=== PATIENT | female | born 1955 | race African-American/Black ===

== ENCOUNTER → 2016-09-18 | Outpatient (CLI) | payer OTHER ==
[~2016-09-18] MED LIST: ATOR1TAB18 PO; CHLO25TA PO; COUM2.5T11 PO; GABA-283 PO; HYDR12.55 PO; HYDR1TAB97 PO; LISI-538 PO; METF500T PO; NAPR500T PO; NAPR500T2 PO; PERC5TAB6 PO; POTA10CA PO
[2016-09-18 11:08] LABS: BASO % 0.2 % (0.0-1.0); EOS # 0.1 K/mm3 (0.0-0.50); EOS % 1.4 % (0.0-3.0); LARGE UNSTAINED CELL # 0.1 K/mm3 (0.0-0.4); LARGE UNSTAINED CELL % 1.1 % (0.0-4.0); LYMPH # 2.1 K/mm3 (1.5-4.5); LYMPH % 22.2 % (24.0-44.0); MEAN CORPUSCULAR HEMOGLOBIN 29.8 pg (27.0-33.0); MEAN CORPUSCULAR HGB CONC 32.3 g/dl (32.0-36.5); MEAN CORPUSCULAR VOLUME 92.2 fl (80.0-96.0); MONO # 0.5 K/mm3 (0.0-0.8); MONO % 5.2 % (0.0-5.0); NEUTROPHILS # 6.5 K/mm3 (1.8-7.7); NEUTROPHILS % 69.8 % (36.0-66.0); PLATELET COUNT, AUTOMATED 209 k/mm3 (150-450); RED CELL DISTRIBUTION WIDTH 12.7 % (11.5-14.5); WHITE BLOOD COUNT 9.4 K/mm3 (4.0-10.0)
[2016-09-18 12:00] LABS: ALBUMIN 3.5 GM/DL (3.2-5.2); ALBUMIN/GLOBULIN RATIO 1.06 (1.00-1.93); ALKALINE PHOSPHATASE 92 U/L (45-117); ALT/SGPT 38 U/L (12-78); ANION GAP 12 MEQ/L (8-16); AST/SGOT 23 U/L (15-37); BILIRUBIN,TOTAL 0.9 MG/DL (0.2-1.0); BLOOD UREA NITROGEN 19 MG/DL (7-18); CALCIUM LEVEL 8.7 MG/DL (8.8-10.2); CARBON DIOXIDE LEVEL 27 MEQ/L (21-32); CHLORIDE LEVEL 101 MEQ/L (98-107); CREATININE FOR GFR 0.86 MG/DL (0.55-1.02); GLOMERULAR FILTRATION RATE > 60.0 (>45); GLUCOSE, FASTING 174 MG/DL (80-110); POTASSIUM SERUM 3.5 MEQ/L (3.5-5.1); SODIUM LEVEL 140 MEQ/L (136-145); TOTAL PROTEIN 6.8 GM/DL (6.4-8.2)
== END ==
LOC: M LAB 10:31
PROVIDERS: ATTEND Family Medicine
DX: Z01.812 Encounter for preprocedural laboratory examination (principal)

== ENCOUNTER → 2016-09-18 | Outpatient (CLI) | payer OTHER ==
[2016-09-18 11:09] LABS: MEAN CORPUSCULAR HEMOGLOBIN 29.3 pg (27.0-33.0); MEAN CORPUSCULAR HGB CONC 31.7 g/dl (32.0-36.5); MEAN CORPUSCULAR VOLUME 92.4 fl (80.0-96.0); RED CELL DISTRIBUTION WIDTH 13.6 % (11.5-14.5); WHITE BLOOD COUNT 11.3 K/mm3 (4.0-10.0)
[2016-09-18 11:15] LABS: INR 0.99
[2016-09-18 11:55] LABS: ALBUMIN 3.5 GM/DL (3.2-5.2); ALBUMIN/GLOBULIN RATIO 1.06 (1.00-1.93); ALKALINE PHOSPHATASE 95 U/L (45-117); ALT/SGPT 37 U/L (12-78); ANION GAP 14 MEQ/L (8-16); AST/SGOT 24 U/L (15-37); BILIRUBIN,TOTAL 0.8 MG/DL (0.2-1.0); BLOOD UREA NITROGEN 18 MG/DL (7-18); CALCIUM LEVEL 8.9 MG/DL (8.8-10.2); CARBON DIOXIDE LEVEL 26 MEQ/L (21-32); CHLORIDE LEVEL 102 MEQ/L (98-107); GLOMERULAR FILTRATION RATE > 60.0 (>45); GLUCOSE, FASTING 178 MG/DL (80-110); POTASSIUM SERUM 3.6 MEQ/L (3.5-5.1); SODIUM LEVEL 142 MEQ/L (136-145); TOTAL PROTEIN 6.8 GM/DL (6.4-8.2)
--- NOTE | 2016-09-18 23:22 | REP ---
Clinical: Hypertension and chest pain. Technique: PA and lateral. Comparison: 12/15/2015. Findings: Stable cardiomegaly is again suggested. Lung lees demonstrate chronic interstitial changes with a linear fibro atelectatic changes suggested in the left mid to lower lung zone. No focal consolidation, effusion, or pneumothorax. Skeletal structures demonstrate age-related degenerative changes. Impression: Chronic-appearing changes as described above. No obvious acute cardiopulmonary process. Signed by Manuel Morris MD 09/18/2016 11:14 P
--- NOTE | 2016-09-22 16:39 | HPE ---
DATE OF SCHEDULED ADMISSION: 09/24/2016 CHIEF COMPLAINT: Left knee pain. HISTORY OF PRESENT ILLNESS: This is a pleasant 61-year-old female with progressively worsening left knee pain and stiffness. She has failed to improve with conservative treatment. She has elected for surgery for her continued symptoms. She has pain with weightbearing activities and her activities of daily living. X-rays of her knee are notable for advanced osteoarthritis of the left knee joint. She has consented for a left total knee arthroplasty by Dr. Сергей Boyd. Medical optimization was performed by Dr. Menon. ALLERGIES: PENICILLIN CURRENT MEDICATIONS: - Naproxen 500 mg twice a day as needed - hydrocodone/acetaminophen 5/325 one every 6 hours as needed - HCTZ 12.5 mg once a day - metformin 500 mg one twice a day - lisinopril 20 mg one once a day PAST MEDICAL HISTORY: Includes high blood pressure and diabetes. PAST SURGICAL HISTORY: Includes bilateral cataracts and a right total knee arthroplasty. 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 FAMILY HISTORY: Noncontributory. REVIEW OF SYSTEMS: This patient denies chest pain, heart palpitations, cough, wheezing, difficulty breathing or shortness of breath. She denies abdominal pain, nausea, vomiting, diarrhea or constipation. She denies recent upper respiratory infection or urinary tract infection symptoms. She does complain of persistent pain in her left knee and pain with weightbearing activities in her left knee. PHYSICAL EXAMINATION: GENERAL: She is well-nourished, well-developed, in no acute distress, adult female. She ambulates with a moderate limp favoring her left lower extremity. She is not using assistive devices. VITAL SIGNS: She is 57-3/4 inches tall, weighs 202 pounds, with a temperature of 98.1, pulse 64, blood pressure 150/90, and respirations of 16. NECK: Supple without adenopathy or jugular venous distension. There were no carotid bruits appreciated upon auscultation. LUNGS: Clear to auscultation without rales or wheeze throughout. HEART: Regular rate and rhythm. ABDOMEN: Bowel sounds were present. EXTREMITIES: Examination of the knee revealed intact skin without erythema or ecchymosis. There is some edema through the joint lines. She has decreased range of motion secondary to pain and stiffness. The limb is neurovascularly intact. LABORATORY DATA: Chest x-ray showed no acute cardiopulmonary disease processes. EKG showed sinus bradycardia at 59 beats per minute. Urinalysis was within normal limits with a specific gravity of 1.014. Prothrombin time 13.2, INR 0.99. CBC showed a white count of 11.3 and mean corpuscular hemoglobin concentration of 31.7, otherwise within normal limits. Sedimentation rate was 3, glucose 178, BUN 18, creatinine 0.90, sodium 142, potassium 3.6. Urine culture showed no growth and nasal and sinus culture showed normal zana. IMPRESSION: Symptomatic osteoarthritis of the left knee. PLAN: Consented for a left total knee arthroplasty by Dr. Сергей Boyd.
== END ==
LOC: M ADMPAT 09:17
PROVIDERS: ATTEND Orthopaedic Surgery
DX: Z01.818 Encounter for other preprocedural examination (principal); E11.9 Type 2 diabetes mellitus without complications; I10 Essential (primary) hypertension

== ENCOUNTER 2016-09-24 05:47 | Inpatient (IN) | payer OTHER ==
[2016-09-18 10:32] VITALS: BP 160/90
[2016-09-24] VITALS (7 sets, daily range): BP systolic 144–178; BP diastolic 67–81
[~2016-09-24] VITALS: Ht 149.9 cm; Wt 92.1 kg
[~2016-09-24 05:47] MED LIST changes: +HYDR-3713 PO; -HYDR1TAB97 PO
[2016-09-24] MEDS ORDERED: LR 1,000 ML IV SCH ×2 (06:00→10:30)
[2016-09-24] MEDS ORDERED: COUM1TAB17 PO (06:46)
[2016-09-24] MEDS ORDERED: CLINDAMYCIN INJ 900MG/6ML VIAL As Ordered ONE (07:03)
[2016-09-24] MEDS ORDERED: TRANEXAMIC ACID 100 MG/ML 10ML VIAL As Ordered ONE (07:03)
[2016-09-24] MEDS ORDERED: MIDAZOLAM INJ 2 MG/2 ML VIAL (J2250) As Ordered ONE ×2 (07:03→09:54)
[2016-09-24] MEDS ORDERED: BUPIVACAINE HCL 0.25% 30 ML VIAL As Ordered ONE (07:03)
[2016-09-24] MEDS ORDERED: fentaNYL 100 MCG/2 ML INJECTION (J3010) As Ordered ONE ×2 (07:03→07:30)
[2016-09-24] MEDS ORDERED: BUPIVACAINE HCL 0.5% 10 ML VIAL As Ordered ONE (07:03)
[2016-09-24] MEDS ORDERED: EPINEPHrine INJ 1 MG/ML 1ML VIAL/AMP As Ordered ONE (07:08)
[2016-09-24] MEDS ORDERED: MIDAZOLAM INJ 2 MG/2 ML VIAL (J2250) IV PRN (07:45)
[2016-09-24] MEDS ORDERED: fentaNYL 100 MCG/2 ML INJECTION (J3010) IV PRN ×2 (07:45→10:30)
[2016-09-24] MEDS ORDERED: fentaNYL 100 MCG/2 ML INJECTION (J3010) XX ONE (08:27)
[2016-09-24] MEDS ORDERED: BUPIVACAINE HCL 0.5% 10 ML VIAL XX ONE (08:27)
[2016-09-24] MEDS ORDERED: TRANEXAMIC ACID 100 MG/ML 10ML VIAL XX ONE (08:27)
[2016-09-24] MEDS ORDERED: EPINEPHrine INJ 1 MG/ML 1ML VIAL/AMP XX ONE (08:27)
[2016-09-24] MEDS ORDERED: CLINDAMYCIN INJ 900MG/6ML VIAL IR ONE (08:27)
[2016-09-24] MEDS ORDERED: BUPIVACAINE HCL 0.25% 30 ML VIAL XX ONE (08:27)
--- NOTE | 2016-09-24 09:42 | RO ---
DATE OF PROCEDURE: 09/24/2016 PREOPERATIVE DIAGNOSIS: Varus osteoarthritis left knee. POSTOPERATIVE DIAGNOSIS: Varus osteoarthritis left knee. OPERATION PERFORMED: Left total knee replacement. SURGEON: Сергей Boyd MD ACETALDEHYDE CONVERTER OPERATOR: VIVIANA Evans ANESTHESIA: HISTORY: A 61-year-old female who recently had a right total knee done. She has done pretty well with that and she presents to have the left one done. FINDING AT SURGERY: Severe osteoarthritis with significant synovitis, a 2.5 femur, a 2 tibia with a 12.5 spacer, 32 mm button. Tourniquet time 60 minutes. There were no intraoperative complications. Mani Damian assisted by retracting vital structures and making saw cuts under my supervision to expedite the procedure. PROCEDURE: After attempt at spinal anesthetic, the patient was placed under general anesthesia. She had a Pettit catheter placed. She had a femoral nerve block in place. IV antibiotics were administered, Kefzol 2 grams and the left leg prepped and draped. Then, tourniquet was inflated to 300 mmHg and an anterior incision made. There was a huge amount of adipose tissue to go through so the patella could not be flipped without skeletonizing it. So we just pushed it off of to the side and opened the intermedullary canal to 5 degrees valgus. 10 mm cut made by Mr. Damian under my supervision. I made the rest of the sizing cuts and then the tibia was exposed. Only went 2 mm on the bad side as I wanted to try to protect our posterior cruciate. The patient had quite a bit of laxity at any rate and I wanted to minimize the resection to stay in good bone. 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 Osteophytes were removed and the menisci were removed. There were no real posterior osteophytes to remove. The sizing guide actually set a 12.5 appeared to balance the extension and flexion gaps. The posterior cruciate was palpated. There still integrity there. The femoral component and tibial component were applied. Rotation was checked. The patella was resurfaced. No lateral release was required. The tibial preparation was completed and then all trial components were removed. Mr. Damian went to the back table to mix methacrylate under vacuum while I thoroughly irrigated the bone. It was then dried. He provided exposure while the components were cemented in place. Knee placed in full extension while the patella was clamped. During this time, the knee was irrigated. Bleeding points were discovered and coagulated. The PainBuster catheter was threaded in place and the tranexamic acid (TXA) placed in the wound for postoperative hemostasis. Then, the median parapatellar arthrotomy closed with heavy PDS suture. The subcutaneous closed with #2-0 PDS in layers due to the depth of the adipose. The tourniquet deflated at 60 minutes and the PainBuster was primed with 10 mL of local anesthetic and attached to the PainBuster ball. The patient then transported to recovery room, breathing spontaneously, having tolerated procedure well.
[2016-09-24] MEDS ORDERED: fentaNYL 250 MCG/5 ML INJECTION (J3010) As Ordered ONE (09:49)
[2016-09-24] MEDS ORDERED: PROPOFOL 200 MG/20 ML VIAL As Ordered ONE (09:49)
[2016-09-24] MEDS ORDERED: ONDANSETRON 4MG/2ML VIAL (J2405) As Ordered ONE (09:49)
[2016-09-24] MEDS ORDERED: ePHEDrine SULFATE 25 MG/5 ML(5MG/ML) SYRINGE As Ordered ONE (09:49)
[2016-09-24] MEDS ORDERED: dexameTHASONE 4 MG/ML 1ML VIAL (J1100) As Ordered ONE (09:49)
[2016-09-24] MEDS ORDERED: LABETALOL HCL 100 MG/20 ML VIAL As Ordered ONE (09:49)
[2016-09-24] MEDS ORDERED: LIDOCAINE 2% INJ 100 MG/5 ML SDV (FOR ANES.) As Ordered ONE (09:50)
[2016-09-24] MEDS ORDERED: ROCURONIUM BROMIDE 50 MG/5 ML VIAL As Ordered ONE (09:50)
[2016-09-24] MEDS ORDERED: GLYCOPYRROLATE INJ 0.2 MG/ML 2 ML VIAL As Ordered ONE (09:50)
[2016-09-24] MEDS ORDERED: MORPHINE PCA 1MG/ML 100ML CADD As Ordered ONE (09:54)
[2016-09-24] MEDS ORDERED: FLEET ENEMA PR PRN (10:30)
[2016-09-24] MEDS ORDERED: ACETAMINOPHEN TAB 650MG DOSE (2X325MG) PO PRN (10:30)
[2016-09-24] MEDS ORDERED: EPIDURAL/PCA KEYS XX PRN (10:30)
[2016-09-24] MEDS ORDERED: diphenhydrAMINE INJ 50MG/ML VIAL (J1200) IV PRN (10:30)
[2016-09-24] MEDS ORDERED: MORPHINE PCA 1MG/ML 100ML CADD IV PRN (10:30)
[2016-09-24] MEDS ORDERED: NALBUPHINE HCL 10 MG/ML AMP (J2300) IV PRN (10:30)
[2016-09-24] MEDS ORDERED: PATIENT IS CURRENTLY ON AN ON-Q PAIN BUSTER PAIN RELIEF SYSTEM XX SCH (10:30)
[2016-09-24] MEDS ORDERED: ONDANSETRON 4MG/2ML VIAL (J2405) IV PRN ×2 (10:30)
[2016-09-24] MEDS ORDERED: NALOXONE INJ 0.4 MG/1 ML VIAL (J2310) IV PRN (10:30)
[2016-09-24] MEDS ORDERED: LIDOCAINE 1% MDV 20ML VIAL ONE (11:06)
[2016-09-24] MEDS ORDERED: ROPIvacaine 0.5% 30 ML INJECTION (J2795) ONE (11:06)
[2016-09-24] MEDS ORDERED: dexameTHASONE 10 MG/1 ML VIAL PRES.FREE (J1100) ONE (11:06)
[2016-09-24] MEDS ORDERED: WARFARIN SOD 5 MG TAB PO SCH (17:00)
[2016-09-24] MEDS: NS 1,000 ML IV SCH ×2 (17:48→22:01)
--- NOTE | 2016-09-24 18:14 | CR.PDOC ---
[facility] Consultation Consultation DATE OF CONSULTATION: 09/24/2016 PRIMARY CARE PHYSICIAN: REFERRING PROVIDER: Dr. Ahsan Jose ATTENDING PHYSICIAN: Dr. Boyd REASON FOR CONSULTATION/CHIEF COMPLAINT: . Medical management HISTORY OF PRESENT ILLNESS: 61-year-old female with past medical history of hypertension, dyslipidemia, diabetes mellitus, and osteoarthritis who was admitted to the hospital for an elective left total knee replacement. At this time the patient denies any acute complaints and notes that she has been compliant with her medications at home. The hospitalist team has been consulted for co-medical management of the patient 's chronic medical comorbidities. ALLERGIES: Please see below. HOME MEDICATIONS: Please see below. PAST MEDICAL HISTORY: As noted above PAST SURGICAL HISTORY: Bilateral cataracts and a right total knee arthroplasty FAMILY HISTORY: Not pertinent SOCIAL HISTORY: Denies alcohol, tobacco, illicit drug use. REVIEW OF SYSTEMS: 10 point review of systems negative unless otherwise specified in HPI. PHYSICAL EXAMINATION: VITAL SIGNS: Please see below. GENERAL APPEARANCE: . Awake, alert, in no acute distress HEENT: . Normocephalic, atraumatic RESPIRATORY: . Clear to auscultation bilaterally CARDIOVASCULAR: . Normal rate, normal S1, S2 ABDOMEN: . Soft, nontender, nondistended EXTREMITIES: . Left knee noted to be wrapped in surgical dressing. Decreased range of motion secondary to recent surgery. Neurovascularly intact distally. LABORATORY DATA: Please see below. ASSESSMENT/PLAN: Status post total left knee replacement Patient tolerating current pain regimen well We'll defer DVT prophylaxis and pain management as per the orthopedic team Hypertension We will withhold the patient's chlorthalidone, lisinopril for this evening until we review BMP in a.m. Blood pressure currently stable Diabetes mellitus Insulin sliding scale Dyslipidemia Continue statin Vital Signs/I&O Vital Signs Date Time Temp Pulse Resp B/P Pulse Ox O2 Delivery O2 Flow Rate FiO2 09/24/16 17:20 98.4 84 18 163/75 98 Nasal Cannula 3.0 Laboratory Data Labs 24H Laboratory Tests 2 09/24/16 06:25: Bedside Glucose (Misc Panel) 154H CBC/BMP Laboratory Tests 09/24/16 06:17 FSBS Laboratory Tests Test 09/24/16 06:25 Range/Units Bedside Glucose (Misc Panel) 154 80-115 MG/DL Allergies Coded Allergies: Penicillins (Unverified Allergy, Intermediate, RASH,ITCHING, 09/18/16) Home Medications Scheduled Atorvastatin Calcium (Atorvastatin Calcium) 80 Mg Tab 80 MG PO DAILY (Reported ) Chlorthalidone (Chlorthalidone) 25 Mg Tab 25 MG PO DAILY (Reported) Gabapentin (Gabapentin) 400 Mg Cap 400 MG PO TID (Reported) Lisinopril (Lisinopril) 20 Mg Tab 20 MG PO DAILY (Reported) Metformin Hydrochloride (Metformin HCl) 500 Mg Tab 500 MG PO BID (Reported) Naproxen (Naproxen) 500 Mg Tab 500 MG PO BID (Reported) Warfarin Sod (Coumadin) 5 Mg Tab 5 MG PO 1T (Reported) AHSAN JOSE MD Sep 24, 2016 18:14
[2016-09-24] MEDS ORDERED: DEXTROSE 50% 50 ML SYRINGE IV PRN (18:15)
[2016-09-24] MEDS ORDERED: GLUCAGON FOR INJ 1 MG VIAL (J1610) SC PRN (18:15)
[2016-09-24] MEDS ORDERED: GLUCOSE 4 GM CHEW TABLET PO PRN (18:15)
[2016-09-24] MEDS: HumaLOG INSULIN (NovoLOG) PER UNIT SC SCH (22:00)
[2016-09-24] MEDS: GABAPENTIN 400 MG CAP PO SCH (22:00)
[2016-09-24] MEDS: ATORVASTATIN 20 MG TAB PO SCH (22:00)
[2016-09-25 02:00] VITALS: BP 167/78
[2016-09-25 06:00] VITALS: BP 172/88
[2016-09-25] MEDS ORDERED: ONDANSETRON 4 MG TAB (S0181) PO PRN (06:30)
[2016-09-25] MEDS ORDERED: PERCOCET 5MG/325MG TAB PO PRN (06:30)
[2016-09-25 06:59] LABS: MEAN CORPUSCULAR HEMOGLOBIN 30.2 pg (27.0-33.0); MEAN CORPUSCULAR HGB CONC 33.2 g/dl (32.0-36.5); MEAN CORPUSCULAR VOLUME 91.1 fl (80.0-96.0); RED CELL DISTRIBUTION WIDTH 12.7 % (11.5-14.5); WHITE BLOOD COUNT 11.2 K/mm3 (4.0-10.0)
[2016-09-25 07:10] LABS: INR 1.13
[2016-09-25 07:13] LABS: ANION GAP 7 MEQ/L (8-16); BLOOD UREA NITROGEN 11 MG/DL (7-18); CALCIUM LEVEL 8.1 MG/DL (8.8-10.2); CARBON DIOXIDE LEVEL 32 MEQ/L (21-32); CHLORIDE LEVEL 103 MEQ/L (98-107); CREATININE FOR GFR 0.72 MG/DL (0.55-1.02); GLOMERULAR FILTRATION RATE > 60.0 (>45); GLUCOSE, FASTING 157 MG/DL (80-110); POTASSIUM SERUM 3.4 MEQ/L (3.5-5.1); SODIUM LEVEL 142 MEQ/L (136-145)
[2016-09-25] MEDS ORDERED: POTASSIUM CHLORIDE 10% LIQ 20 MEQ/15 ML UDC PO ONE (08:00)
--- NOTE | 2016-09-25 08:48 | REP ---
Clinical: Status post arthroplasty. Technique: AP and cross-table lateral views. Findings: The patient is status post left knee replacement with normal positioning and appearance to the femoral and tibial components. Overlying postsurgical changes appreciated. Impression: Satisfactory left knee replacement radiographs. Signed by Manuel Morris MD 09/25/2016 08:38 A
[2016-09-25] MEDS: MOM 30ML SUSPENSION UDC PO SCH (08:53)
[2016-09-25] MEDS: SENOKOT S TAB PO SCH ×2 (08:54→21:39)
[2016-09-25] MEDS: CHLORTHALIDONE 25 MG TAB PO SCH (08:54)
[2016-09-25] MEDS: GABAPENTIN 400 MG CAP PO SCH ×3 (08:54→21:39)
[2016-09-25] MEDS: LISINOPRIL 20 MG TAB PO SCH (08:55)
[2016-09-25] MEDS: MIRALAX *UNIT DOSE* 17GM PACKET PO SCH (08:55)
[2016-09-25] MEDS: PERCOCET 5MG/325MG TAB PO PRN ×4 (08:56→21:39)
[2016-09-25] MEDS: HumaLOG INSULIN (NovoLOG) PER UNIT SC SCH ×4 (08:57→21:00)
[2016-09-25 14:00] VITALS: BP 136/71
--- NOTE | 2016-09-25 14:19 | IPNPDOC ---
Assessment/Plan Date Seen The patient was seen on 09/25/16. Plan / VTE VTE Prophylaxis Ordered?: Yes Plan Plan Text Status post total left knee replacement Patient tolerating current pain regimen well We'll defer DVT prophylaxis and pain management as per the orthopedic team Hypertension Cont chlorthalidone, lisinopril Blood pressure currently stable Diabetes mellitus Insulin sliding scale Dyslipidemia Continue statin Subjective Review of Systems CC/HPI The patient is a 61-year-old female admitted with a reason for visit of Left Knee Arthritis. General: Denies: Chills, Night Sweats Constitutional: Denies: Chills, Fever Eyes: Denies: Pain, Vision change ENT: Denies: Ear Pain, Head Aches Pulmonary: Denies: Cough, Dyspnea Cardiovascular: Denies: Chest Pain, Palpitations Gastrointestinal: Denies: Nausea, Vomiting Hematologic: Denies: Bleeding Excessively, Bruising Objective Physical Examination General Exam: Positive: Alert, Cooperative, No Acute Distress ENT Exam: Positive: Atraumatic, Mucous membr. moist/pink Chest Exam: Positive: Clear to auscultation, Normal air movement Heart Exam: Positive: Normal S1, Normal S2, Rate Normal Abdomen Exam: Positive: Soft, Negative: Tenderness Extremity Exam: Positive: Other (Left Knee noted to be wrapped in surgical dressing. Limited ROM 2/2 recent Knee Replacement) Vital Signs/I&O Vital Signs Date Time Temp Pulse Resp B/P Pulse Ox O2 Delivery O2 Flow Rate FiO2 09/25/16 13:04 18 98 09/25/16 09:00 Room Air 0.0 09/25/16 08:55 172/88 09/25/16 06:00 98.0 78 I&O- Last 24 Hours up to 6 AM 09/25/16 06:00 Intake Total 2730 ml Output Total 2300 ml Balance 430 ml Laboratory Data Labs 24H Laboratory Tests 2 09/24/16 21:31: Bedside Glucose (Misc Panel) 238H 09/25/16 06:18: Anion Gap 7L, Blood Urea Nitrogen 11, Creatinine 0.72, Sodium Level 142, Potassium Level 3.4L, Chloride Level 103, Carbon Dioxide Level 32, Calcium Level 8.1L, Glomerular Filtration Rate > 60.0, Prothromb Time International Ratio 1.13, Prothrombin Time 14.6H 09/25/16 11:58: Bedside Glucose (Misc Panel) 203H CBC/BMP Laboratory Tests 09/25/16 06:18 Calcium Level 8.1 L, Red Blood Count 3.73 L, Mean Corpuscular Volume 91.1, Mean Corpuscular Hemoglobin 30.2, Mean Corpuscular Hemoglobin Concent 33.2, Red Cell Distribution Width 12.7 FSBS Laboratory Tests Test 09/24/16 21:31 09/25/16 11:58 Range/Units Bedside Glucose (Misc Panel) 238 203 80-115 MG/DL MERCY JOSE MD Sep 25, 2016 14:19
[2016-09-25] MEDS ORDERED: WARFARIN SOD 5 MG TAB PO ONE (17:00)
[2016-09-25] MEDS: ATORVASTATIN 20 MG TAB PO SCH (21:39)
[2016-09-25 22:00] VITALS: BP 142/68
[2016-09-26] MEDS: PERCOCET 5MG/325MG TAB PO PRN ×3 (05:29→21:25)
[2016-09-26 06:00] VITALS: BP 130/63
[2016-09-26 06:45] LABS: MEAN CORPUSCULAR HEMOGLOBIN 29.3 pg (27.0-33.0); MEAN CORPUSCULAR HGB CONC 32.1 g/dl (32.0-36.5); MEAN CORPUSCULAR VOLUME 91.3 fl (80.0-96.0); RED CELL DISTRIBUTION WIDTH 13.7 % (11.5-14.5); WHITE BLOOD COUNT 9.9 K/mm3 (4.0-10.0)
[2016-09-26 06:47] LABS: INR 1.31
[2016-09-26] MEDS: LISINOPRIL 20 MG TAB PO SCH (08:13)
[2016-09-26] MEDS: CHLORTHALIDONE 25 MG TAB PO SCH (08:13)
[2016-09-26] MEDS: MOM 30ML SUSPENSION UDC PO SCH (08:13)
[2016-09-26] MEDS: MIRALAX *UNIT DOSE* 17GM PACKET PO SCH (08:13)
[2016-09-26] MEDS: HumaLOG INSULIN (NovoLOG) PER UNIT SC SCH ×4 (08:13→21:00)
[2016-09-26] MEDS: GABAPENTIN 400 MG CAP PO SCH ×3 (08:14→21:25)
[2016-09-26] MEDS: SENOKOT S TAB PO SCH ×2 (08:14→21:25)
[2016-09-26 14:00] VITALS: BP 135/75
--- NOTE | 2016-09-26 15:05 | IPNPDOC ---
Assessment/Plan Date Seen The patient was seen on 09/26/16. Plan / VTE VTE Prophylaxis Ordered?: Yes Plan Plan Text Status post total left knee replacement Patient tolerating current pain regimen well We'll defer DVT prophylaxis and pain management as per the orthopedic team Hypertension Cont chlorthalidone, lisinopril Blood pressure currently stable Diabetes mellitus Insulin sliding scale Dyslipidemia Continue statin Subjective Review of Systems CC/HPI The patient is a 61-year-old female admitted with a reason for visit of Left Knee Arthritis. General: Denies: Chills, Night Sweats Constitutional: Denies: Chills, Fever Eyes: Denies: Pain, Vision change ENT: Denies: Ear Pain, Head Aches Skin: Denies: Lesions, Rash Pulmonary: Denies: Cough, Dyspnea Cardiovascular: Denies: Chest Pain, Palpitations Gastrointestinal: Denies: Nausea, Vomiting Genitourinary: Denies: Dysuria, Frequency Hematologic: Denies: Bleeding Excessively, Bruising Objective Physical Examination General Exam: Positive: Alert, Cooperative, No Acute Distress ENT Exam: Positive: Atraumatic, Mucous membr. moist/pink Chest Exam: Positive: Clear to auscultation, Normal air movement Heart Exam: Positive: Normal S1, Normal S2, Rate Normal Abdomen Exam: Positive: Soft, Negative: Tenderness Extremity Exam: Positive: Other (Left Knee noted to be wrapped in surgical dressing. Limited ROM 2/2 recent Knee Replacement) Vital Signs/I&O Vital Signs Date Time Temp Pulse Resp B/P Pulse Ox O2 Delivery O2 Flow Rate FiO2 09/26/16 14:00 98.8 84 17 135/75 94 Room Air 09/25/16 18:27 0.0 I&O- Last 24 Hours up to 6 AM 09/26/16 06:00 Intake Total 1380 ml Output Total 1550 ml Balance -170 ml Laboratory Data Labs 24H Laboratory Tests 2 09/25/16 17:08: Bedside Glucose (Misc Panel) 199H 09/25/16 20:44: Bedside Glucose (Misc Panel) 160H 09/26/16 06:28: Prothromb Time International Ratio 1.31, Prothrombin Time 16.4H 09/26/16 06:29: Bedside Glucose (Misc Panel) 125H 09/26/16 07:37: Bedside Glucose (Misc Panel) 127H 09/26/16 12:04: Bedside Glucose (Misc Panel) 189H CBC/BMP Laboratory Tests 09/26/16 06:28 Red Blood Count 3.88 L, Mean Corpuscular Volume 91.3, Mean Corpuscular Hemoglobin 29.3, Mean Corpuscular Hemoglobin Concent 32.1, Red Cell Distribution Width 13.7 FSBS Laboratory Tests Test 09/25/16 17:08 09/25/16 20:44 09/26/16 06:29 09/26/16 07:37 Range/Units Bedside Glucose (Misc Panel) 199 160 125 127 80-115 MG/DL Test 09/26/16 12:04 Range/Units Bedside Glucose (Misc Panel) 189 80-115 MG/DL MERCY JOSE MD Sep 26, 2016 15:05
[2016-09-26] MEDS ORDERED: WARFARIN SOD 3 MG TAB PO ONE (17:00)
[2016-09-26] MEDS: ATORVASTATIN 20 MG TAB PO SCH (21:24)
[2016-09-26 22:00] VITALS: BP 131/74
[2016-09-27] MEDS: PERCOCET 5MG/325MG TAB PO PRN ×4 (04:04→20:13)
[2016-09-27 05:50] LABS: INR 1.46
[2016-09-27 05:51] LABS: MEAN CORPUSCULAR HEMOGLOBIN 30.2 pg (27.0-33.0); MEAN CORPUSCULAR HGB CONC 32.8 g/dl (32.0-36.5); MEAN CORPUSCULAR VOLUME 92.1 fl (80.0-96.0); RED CELL DISTRIBUTION WIDTH 12.7 % (11.5-14.5)
[2016-09-27 06:00] VITALS: BP 120/60
[2016-09-27] MEDS: LISINOPRIL 20 MG TAB PO SCH (08:07)
[2016-09-27] MEDS: MIRALAX *UNIT DOSE* 17GM PACKET PO SCH (08:07)
[2016-09-27] MEDS: CHLORTHALIDONE 25 MG TAB PO SCH (08:07)
[2016-09-27] MEDS: MOM 30ML SUSPENSION UDC PO SCH (08:07)
[2016-09-27] MEDS: SENOKOT S TAB PO SCH ×2 (08:07→20:13)
[2016-09-27] MEDS: GABAPENTIN 400 MG CAP PO SCH ×3 (08:07→20:14)
[2016-09-27] MEDS: HumaLOG INSULIN (NovoLOG) PER UNIT SC SCH ×4 (08:08→20:14)
--- NOTE | 2016-09-27 11:49 | IPNPDOC ---
Assessment/Plan Date Seen The patient was seen on 09/27/16. Plan / VTE VTE Prophylaxis Ordered?: Yes Plan Plan Text Status post total left knee replacement Patient tolerating current pain regimen well We'll defer DVT prophylaxis and pain management as per the orthopedic team Hypertension Cont chlorthalidone, lisinopril Blood pressure currently stable Diabetes mellitus Insulin sliding scale Dyslipidemia Continue statin Subjective Review of Systems CC/HPI The patient is a 61-year-old female admitted with a reason for visit of Left Knee Arthritis. General: Denies: Chills, Night Sweats Constitutional: Denies: Chills, Fever Eyes: Denies: Pain, Vision change ENT: Denies: Ear Pain, Head Aches Skin: Denies: Lesions, Rash Pulmonary: Denies: Cough, Dyspnea Cardiovascular: Denies: Chest Pain, Palpitations Gastrointestinal: Denies: Abdominal Pain, Nausea, Vomiting Hematologic: Denies: Bleeding Excessively, Bruising Objective Physical Examination General Exam: Positive: Alert, Cooperative, No Acute Distress ENT Exam: Positive: Atraumatic, Mucous membr. moist/pink Chest Exam: Positive: Clear to auscultation, Normal air movement Heart Exam: Positive: Normal S1, Normal S2, Rate Normal Abdomen Exam: Positive: Soft, Negative: Tenderness Extremity Exam: Positive: Other (Left Knee noted to be wrapped in surgical dressing. Limited ROM 2/2 recent Knee Replacement) Vital Signs/I&O Vital Signs Date Time Temp Pulse Resp B/P Pulse Ox O2 Delivery O2 Flow Rate FiO2 09/27/16 09:29 18 09/27/16 08:07 120/60 09/27/16 06:00 98.6 82 93 Room Air 09/25/16 18:27 0.0 I&O- Last 24 Hours up to 6 AM 09/27/16 05:59 Intake Total 1200 ml Output Total 2400 ml Balance -1200 ml Laboratory Data Labs 24H Laboratory Tests 2 09/26/16 12:04: Bedside Glucose (Misc Panel) 189H 09/26/16 16:53: Bedside Glucose (Misc Panel) 210H 09/26/16 21:14: Bedside Glucose (Misc Panel) 119H 09/27/16 05:13: Prothromb Time International Ratio 1.46, Prothrombin Time 17.8H 09/27/16 06:35: Bedside Glucose (Misc Panel) 137H CBC/BMP Laboratory Tests 09/27/16 05:13 Red Blood Count 3.74 L, Mean Corpuscular Volume 92.1, Mean Corpuscular Hemoglobin 30.2, Mean Corpuscular Hemoglobin Concent 32.8, Red Cell Distribution Width 12.7 FSBS Laboratory Tests Test 09/26/16 12:04 09/26/16 16:53 09/26/16 21:14 09/27/16 06:35 Range/Units Bedside Glucose (Misc Panel) 189 210 119 137 80-115 MG/DL MERCY JOSE MD Sep 27, 2016 11:49
[2016-09-27 14:00] VITALS: BP 121/62
[2016-09-27] MEDS ORDERED: WARFARIN SOD 7.5 MG TAB PO SCH (17:00)
[2016-09-27] MEDS: ATORVASTATIN 20 MG TAB PO SCH (20:11)
[2016-09-27 22:00] VITALS: BP 135/69
[2016-09-28] MEDS: PERCOCET 5MG/325MG TAB PO PRN ×3 (02:28→13:30)
[2016-09-28 05:57] LABS: INR 1.47
[2016-09-28 06:00] VITALS: BP 110/61
[2016-09-28] MEDS: HumaLOG INSULIN (NovoLOG) PER UNIT SC SCH ×2 (07:30→12:00)
[2016-09-28] MEDS ORDERED: COUM2.5T11 PO (08:26)
[2016-09-28] MEDS ORDERED: PERC5TAB6 PO (08:26)
[2016-09-28] MEDS: MIRALAX *UNIT DOSE* 17GM PACKET PO SCH (09:00)
[2016-09-28] MEDS: MOM 30ML SUSPENSION UDC PO SCH (09:00)
[2016-09-28] MEDS: CHLORTHALIDONE 25 MG TAB PO SCH (09:19)
[2016-09-28] MEDS: SENOKOT S TAB PO SCH (09:19)
[2016-09-28 09:20] VITALS: BP 110/61
[2016-09-28] MEDS: GABAPENTIN 400 MG CAP PO SCH (09:20)
[2016-09-28] MEDS: LISINOPRIL 20 MG TAB PO SCH (09:20)
[2016-09-28] MEDS ORDERED: COLA100C PO (10:42)
--- NOTE | 2016-09-28 11:43 | IPNPDOC ---
Assessment/Plan Date Seen The patient was seen on 09/28/16. Plan / VTE VTE Prophylaxis Ordered?: Yes Plan Plan Text Status post total left knee replacement Patient tolerating current pain regimen well We'll defer DVT prophylaxis and pain management as per the orthopedic team Hypertension Cont chlorthalidone, lisinopril Blood pressure currently stable Diabetes mellitus Insulin sliding scale Dyslipidemia Continue statin Subjective Review of Systems CC/HPI The patient is a 61-year-old female admitted with a reason for visit of Left Knee Arthritis. General: Denies: Chills, Night Sweats Constitutional: Denies: Chills, Fever Eyes: Denies: Pain, Vision change ENT: Denies: Ear Pain, Head Aches Skin: Denies: Lesions, Rash Pulmonary: Denies: Cough, Dyspnea Cardiovascular: Denies: Chest Pain, Palpitations Gastrointestinal: Denies: Abdominal Pain, Nausea, Vomiting Hematologic: Denies: Bleeding Excessively, Bruising Objective Physical Examination General Exam: Positive: Alert, Cooperative, No Acute Distress ENT Exam: Positive: Atraumatic, Mucous membr. moist/pink Chest Exam: Positive: Clear to auscultation, Normal air movement Heart Exam: Positive: Normal S1, Normal S2, Rate Normal Abdomen Exam: Positive: Soft, Negative: Tenderness Extremity Exam: Positive: Other (Left Knee noted to be wrapped in surgical dressing. Limited ROM 2/2 recent Knee Replacement) Vital Signs/I&O Vital Signs Date Time Temp Pulse Resp B/P Pulse Ox O2 Delivery O2 Flow Rate FiO2 09/28/16 09:50 20 09/28/16 09:20 110/61 09/28/16 09:20 Room Air 09/28/16 06:00 97.9 81 92 09/25/16 18:27 0.0 I&O- Last 24 Hours up to 6 AM 09/28/16 06:00 Intake Total 1080 ml Output Total 1550 ml Balance -470 ml Laboratory Data Labs 24H Laboratory Tests 2 09/27/16 17:05: Bedside Glucose (Misc Panel) 250H 09/27/16 20:10: Bedside Glucose (Misc Panel) 181H 09/28/16 05:12: Prothromb Time International Ratio 1.47, Prothrombin Time 17.9H 09/28/16 06:25: Bedside Glucose (Misc Panel) 132H FSBS Laboratory Tests Test 09/27/16 17:05 09/27/16 20:10 09/28/16 06:25 Range/Units Bedside Glucose (Misc Panel) 250 181 132 80-115 MG/DL MERCY JOSE MD Sep 28, 2016 11:43
[2016-09-28 14:00] VITALS: BP 149/67
--- NOTE | 2016-10-02 14:11 | DSES ---
DATE OF ADMISSION: 09/24/2016 DATE OF DISCHARGE: 09/28/2016 ATTENDING PHYSICIAN: Сергей Boyd MD ADMISSION DIAGNOSIS: Osteoarthritis left knee. OTHER DIAGNOSES: Hypertension, elevated lipids, non-insulin dependent diabetes. DISCHARGE DIAGNOSIS: Osteoarthritis left knee status post left total knee arthroplasty. HISTORY: This is a pleasant 61-year-old female with progressively worsening left knee pain and stiffness. She failed to improve with conservative management. She was admitted for elective knee replacement on the left side. OPERATION PERFORMED: Left total knee arthroplasty. HOSPITAL COURSE: The patient was admitted on day of surgery and underwent a left total knee arthroplasty which was uneventful. She did well in the postoperative period and hospital course was without complications. She was up with physical therapy per their protocol and her pain was controlled. On day of discharge she was doing well, weightbearing as tolerated on her left lower extremity. She will move her left knee to prevent stiffness. She will use adjusted dose Coumadin and thromboembolic deterrent (AIDEE) stockings for 30 days postoperative for deep venous thrombosis (DVT) prophylaxis. She will use oral pain medications for pain control. She will resume her preoperative medications and diet. She was given instructions to include but not limited to wound monitoring and activity limitations. Please refer to the medical record for further details. She will followup in our office in 10-14 days for surgical followup.
== END 2016-09-28 16:10 | disposition home health service (06) | DRG 302 ==
LOC: M OR 05:47 → M MS5PR 13:25
PROVIDERS: ADMIT Orthopaedic Surgery; ATTEND Orthopaedic Surgery
PROC: 0SRD0J9 Replacement of Left Knee Joint with Synthetic Substitute, Cemented, Open Approach (ICD-10-PCS; principal; 2016-09-24 07:30)
DX: M17.12 Unilateral primary osteoarthritis, left knee (principal); I10 Essential (primary) hypertension; E78.5 Hyperlipidemia, unspecified; E11.9 Type 2 diabetes mellitus without complications; Z88.0 Allergy status to penicillin; Z79.899 Other long term (current) drug therapy

== ENCOUNTER → 2016-09-30 | Outpatient (REF) | payer OTHER ==
[~2016-09-30] MED LIST changes: +COLA100C PO; +COUM1TAB17 PO
[2016-09-30 15:06] LABS: INR 2.19
== END ==
LOC: M SHH 14:25
PROVIDERS: ATTEND Nurse Practitioner Family
DX: Z51.81 Encounter for therapeutic drug level monitoring (principal); Z79.01 Long term (current) use of anticoagulants

== ENCOUNTER → 2016-10-02 | Outpatient (REF) | payer OTHER ==
[2016-10-02 15:06] LABS: INR 2.4
== END ==
LOC: M SHH 14:50
PROVIDERS: ATTEND Nurse Practitioner Family
DX: Z51.81 Encounter for therapeutic drug level monitoring (principal); Z79.01 Long term (current) use of anticoagulants

== ENCOUNTER → 2016-10-06 | Outpatient (REF) | payer OTHER | LOC: M LAB REF 13:37 → M SHH 13:37 | PROVIDERS: ATTEND Nurse Practitioner Family | DX: Z51.81 Encounter for therapeutic drug level monitoring (principal); Z79.01 Long term (current) use of anticoagulants ==

== ENCOUNTER → 2016-10-09 | Outpatient (REF) | payer OTHER ==
[2016-10-09 11:30] LABS: INR 1.19
== END ==
LOC: M SHH 11:13
PROVIDERS: ATTEND Nurse Practitioner Family
DX: Z51.81 Encounter for therapeutic drug level monitoring (principal); Z79.01 Long term (current) use of anticoagulants

== ENCOUNTER → 2016-10-14 | Outpatient (REF) | payer OTHER ==
[2016-10-14 15:35] LABS: INR 1.74
== END ==
LOC: M LAB REF 14:25
PROVIDERS: ATTEND Nurse Practitioner Family
DX: Z51.81 Encounter for therapeutic drug level monitoring (principal); Z79.01 Long term (current) use of anticoagulants

== ENCOUNTER → 2016-10-20 | Outpatient (REF) | payer OTHER ==
[2016-10-20 14:18] LABS: INR 1.34
== END ==
LOC: M SHH 13:33
PROVIDERS: ATTEND Nurse Practitioner Family
DX: Z51.81 Encounter for therapeutic drug level monitoring (principal); Z79.01 Long term (current) use of anticoagulants

== ENCOUNTER → 2016-10-23 | Outpatient (REF) | payer OTHER ==
[2016-10-23 12:43] LABS: INR 1.6
== END ==
LOC: M LAB REF 12:01
PROVIDERS: ATTEND Nurse Practitioner Family
DX: Z51.81 Encounter for therapeutic drug level monitoring (principal); Z79.01 Long term (current) use of anticoagulants

== ENCOUNTER → 2016-11-07 | Outpatient (CLI) | payer OTHER ==
[~2016-11-07] MED LIST changes: +E-Z PAQUE 60% w/v SUSP 355ML BOTTLE As Ordered ONE; +E-Z-GAS II EFFERVESCENT PACKET (SODIUM BICARB./CITRIC ACID/SIMETHICONE) As Ordered ONE; +E-Z-HD 98% w/w 340GM SUSP BTL As Ordered ONE
--- NOTE | 2016-11-07 11:06 | REP ---
Clinical: dysphagia. Technique: Single contrast and double contrast technique using barium sulfate substrates. Findings: Normal motility through the oropharynx and hypopharynx is appreciated without obvious mass/mass effect or contour abnormality. The esophagus demonstrates normal mucosal outline and distension without ulcerations, polyps, mass lesions, mucosal irregularities or extrinsic abnormalities. Scattered tertiary waves were noted and likely age-related. No areas of stenosis or stricture appreciated. A small sliding hiatal hernia is appreciated with mild reflux to the mid-esophageal level. Total fluoroscopic time: 1 minute 43 seconds . Impression: Normal esophageal motility with few scattered tertiary waves likely age related. Small sliding hiatal hernia and mild reflux. Signed by Manuel Morris MD 11/07/2016 10:58 A
== END ==
LOC: M RAD 09:59
PROVIDERS: ATTEND Family Medicine
DX: K44.9 Diaphragmatic hernia without obstruction or gangrene (principal)

== ENCOUNTER → 2017-02-13 | Outpatient (REF) | payer OTHER ==
[~2017-02-13] MED LIST changes: -COLA100C PO; +COLA100C3 PO; -E-Z PAQUE 60% w/v SUSP 355ML BOTTLE As Ordered ONE; -E-Z-GAS II EFFERVESCENT PACKET (SODIUM BICARB./CITRIC ACID/SIMETHICONE) As Ordered ONE; -E-Z-HD 98% w/w 340GM SUSP BTL As Ordered ONE
[2017-02-13 11:16] LABS: ANION GAP 7 MEQ/L (8-16); BLOOD UREA NITROGEN 16 MG/DL (7-18); CALCIUM LEVEL 8.8 MG/DL (8.8-10.2); CARBON DIOXIDE LEVEL 31 MEQ/L (21-32); CHLORIDE LEVEL 105 MEQ/L (98-107); GLOMERULAR FILTRATION RATE > 60.0 (>45); GLUCOSE, FASTING 148 MG/DL (80-110); POTASSIUM SERUM 3.8 MEQ/L (3.5-5.1); SODIUM LEVEL 143 MEQ/L (136-145)
== END ==
LOC: M LABDRAW1 08:46
PROVIDERS: ATTEND Family Medicine
DX: I50.32 Chronic diastolic (congestive) heart failure (principal)

== ENCOUNTER → 2017-02-27 | Outpatient (REF) | payer OTHER ==
[~2017-02-27] MED LIST changes: +GABA600T PO; +MULT1TAB10 PO
== END ==
LOC: M LAB REF 18:20
PROVIDERS: ATTEND Family Medicine
DX: E11.9 Type 2 diabetes mellitus without complications (principal)

== ENCOUNTER 2017-03-05 08:12 | Emergency (ER) | payer OTHER ==
[~2017-03-05] VITALS: Ht 157.5 cm; Wt 87.7 kg
[~2017-03-05 08:12] MED LIST changes: -ATOR1TAB18 PO; +ATOR80TA59 PO; -COLA100C3 PO; +COLA100C5 PO; -COUM2.5T11 PO; +COUM2.5T17 PO; -GABA600T PO; -METF500T PO; +METF500T13 PO; -MULT1TAB10 PO; -NAPR500T2 PO; +NAPR500T3 PO; +PERC5TAB12 PO; -PERC5TAB6 PO
[2017-03-05] MEDS ORDERED: POTA10CA PO (08:35)
[2017-03-05] MEDS ORDERED: GABA600T PO (08:35)
[2017-03-05] MEDS ORDERED: MULT1TAB10 PO (08:35)
[2017-03-05] MEDS ORDERED: NAPR500T3 PO (08:35)
[2017-03-05] MEDS ORDERED: IPRATROPIUM 0.5MG/ALBUTEROL 2.5MG INH SOL UD 3ML (DUONEB)(J7620) NEB ONE (08:45)
[2017-03-05] MEDS ORDERED: ALBUTEROL SULFATE 2.5 MG/0.5 ML INH NEB SOLN INH ONE (08:45)
[2017-03-05] MEDS ORDERED: methylPREDNISolone INJ 125 MG/2 ML VIAL (J2930) IV ONE (08:45)
[2017-03-05 09:16] LABS: INR 0.97
--- NOTE | 2017-03-05 09:21 | REP ---
Portable chest, 03/05/2017, 08:57 a.m., single AP view, patient sitting: Comparison is 2016. The lung lees are clear. The cardiac size is is enlarged, unchanged . The sarbjit, mediastinum, and bony thorax are unremarkable. Impression: Cardiomegaly. Otherwise, negative portable chest. Signed by William Farley MD 03/05/2017 09:13 A
[2017-03-05 09:24] LABS: ABG HCO3 26.6 MEQ/L (22.0-26.0); ABG PARTIAL PRESSURE CO2 36.9 mmHg (35.0-45.0); ABG PARTIAL PRESSURE O2 86.8 mmHg (75.0-100.0); ABG STANDARD HCO3 27.2 MEQ/L (22.0-26.0); ABG TOTAL CO2 27.7 MEQ/L (23.0-31.0); ABG pH (ARTERIAL) 7.475 UNITS (7.350-7.450)
[2017-03-05 09:25] LABS: BASO # 0.1 K/mm3 (0.0-0.2); BASO % 1.1 % (0.0-1.0); EOS # 0.1 K/mm3 (0.0-0.50); EOS % 2.2 % (0.0-3.0); LARGE UNSTAINED CELL # 0.1 K/mm3 (0.0-0.4); LARGE UNSTAINED CELL % 2.1 % (0.0-4.0); LYMPH % 38.1 % (24.0-44.0); MEAN CORPUSCULAR HGB CONC 33.7 g/dl (32.0-36.5); MEAN CORPUSCULAR VOLUME 91.9 fl (80.0-96.0); MONO # 0.4 K/mm3 (0.0-0.8); MONO % 6.8 % (0.0-5.0); NEUTROPHILS # 2.6 K/mm3 (1.8-7.7); NEUTROPHILS % 49.6 % (36.0-66.0); PLATELET COUNT, AUTOMATED 229 k/mm3 (150-450); RED CELL DISTRIBUTION WIDTH 12.3 % (11.5-14.5); WHITE BLOOD COUNT 5.2 K/mm3 (4.0-10.0)
[2017-03-05 09:28] LABS: ANION GAP 9 MEQ/L (8-16); BLOOD UREA NITROGEN 4 MG/DL (7-18); CALCIUM LEVEL 8.5 MG/DL (8.8-10.2); CARBON DIOXIDE LEVEL 29 MEQ/L (21-32); CHLORIDE LEVEL 93 MEQ/L (98-107); CREATININE FOR GFR 0.74 MG/DL (0.55-1.02); GLOMERULAR FILTRATION RATE > 60.0 (>45); GLUCOSE, FASTING 136 MG/DL (80-110); POTASSIUM SERUM 2.9 MEQ/L (3.5-5.1); SODIUM LEVEL 131 MEQ/L (136-145)
[2017-03-05 09:34] LABS: ALBUMIN 3.1 GM/DL (3.2-5.2); ALBUMIN/GLOBULIN RATIO 0.97 (1.00-1.93); BILIRUBIN,DIRECT 0.2 MG/DL (0.0-0.2); THYROXINE (T4) 11.4 UG/DL (4.5-12.0); TOTAL PROTEIN 6.3 GM/DL (6.4-8.2)
[2017-03-05] MEDS ORDERED: POTASSIUM CHLORIDE 10 MEQ SR TABLET PO ONE (10:15)
[2017-03-05] MEDS ORDERED: NS 500 ML IV ONE (10:45)
[2017-03-05] MEDS ORDERED: KCL 10MEQ IN 100ML SWI (KRUN) 10 MEQ in APPROPRIATE DILUENT 1 EA IV ONE ×2 (10:45)
[2017-03-05] MEDS ORDERED: ISOVUE-370 76% 100ML VIAL (Q9967) As Ordered ONE (11:04)
--- NOTE | 2017-03-05 11:58 | REP ---
CT chest with IV contrast, pulmonary artery CT angiography: There are no emboli in the pulmonary trunk or central pulmonary arteries. There are no emboli in the pulmonary artery lobe or segment branches. There are no infiltrates, effusions or masses. There is minor atelectasis at the inferior tip of the lingula posteriorly. There is a fibro linear scar in the anterior segment of the left lower lobe. The visualized upper abdominal contents are unremarkable. Impression: There are no pulmonary emboli. Otherwise, negative CT study of the chest. Signed by William Farley MD 03/05/2017 11:49 A
[2017-03-05 12:53] VITALS: BP 168/74
--- NOTE | 2017-03-06 05:55 | ECGEPIP ---
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
== END 2017-03-05 12:54 | disposition home or self-care (01) ==
LOC: M ED 09:44
DX: R06.00 Dyspnea, unspecified (principal); R20.9 Unspecified disturbances of skin sensation; R53.1 Weakness; E87.6 Hypokalemia; R94.31 Abnormal electrocardiogram [ECG] [EKG]; I51.7 Cardiomegaly; E11.9 Type 2 diabetes mellitus without complications; I10 Essential (primary) hypertension; Z79.84 Long term (current) use of oral hypoglycemic drugs; Z79.899 Other long term (current) drug therapy; Z88.0 Allergy status to penicillin

== ENCOUNTER → 2017-03-09 | Outpatient (CLI) | payer OTHER ==
[~2017-03-09] MED LIST changes: +ATOR1TAB18 PO; -ATOR80TA59 PO; +COLA100C3 PO; -COLA100C5 PO; +COUM2.5T11 PO; -COUM2.5T17 PO; +GABA600T PO; +METF500T PO; -METF500T13 PO; +MULT1TAB10 PO; +NAPR500T2 PO; -NAPR500T3 PO; -PERC5TAB12 PO; +PERC5TAB6 PO
[2017-03-09 20:14] LABS: ANION GAP 7 MEQ/L (8-16); BLOOD UREA NITROGEN 11 MG/DL (7-18); CALCIUM LEVEL 9.2 MG/DL (8.8-10.2); CARBON DIOXIDE LEVEL 29 MEQ/L (21-32); CHLORIDE LEVEL 99 MEQ/L (98-107); CREATININE FOR GFR 0.84 MG/DL (0.55-1.02); GLOMERULAR FILTRATION RATE > 60.0 (>45); GLUCOSE, FASTING 209 MG/DL (80-110); POTASSIUM SERUM 3.7 MEQ/L (3.5-5.1); SODIUM LEVEL 135 MEQ/L (136-145)
== END ==
LOC: M WUC 17:48
PROVIDERS: ATTEND Family Medicine
DX: E87.6 Hypokalemia (principal)

== ENCOUNTER → 2017-03-13 | Outpatient (CLI) | payer OTHER ==
[~2017-03-13] MED LIST changes: -ATOR1TAB18 PO; +ATOR80TA59 PO; -COLA100C3 PO; +COLA100C5 PO; -COUM2.5T11 PO; +COUM2.5T17 PO; -METF500T PO; +METF500T13 PO; -NAPR500T2 PO; +NAPR500T3 PO; +PERC5TAB12 PO; -PERC5TAB6 PO
[2017-03-13 19:32] LABS: TOTAL PROTEIN 6.3 GM/DL (6.4-8.2)
[2017-03-13 19:33] LABS: FOLATE 8.4 NG/ML (>5.4); VITAMIN B12 LEVEL 809 PG/ML (247-911)
[2017-03-19 10:31] LABS: ALBUMIN 3.77 GM/DL (3.29-5.55); ALBUMIN % 59.9 % (55.8-66.1); GAMMA GLOBULIN % 13.1 % (11.1-18.8)
== END ==
LOC: M WUC 17:15
PROVIDERS: ATTEND Psychiatry & Neurology Neurology
DX: G62.9 Polyneuropathy, unspecified (principal)

== ENCOUNTER → 2017-03-13 | Outpatient (REF) | payer OTHER ==
[2017-03-13 13:15] LABS: MAGNESIUM LEVEL 1.5 MG/DL (1.8-2.4)
== END ==
LOC: M LABDRAW1 12:07
PROVIDERS: ATTEND Family Medicine
DX: R53.1 Weakness (principal)

== ENCOUNTER → 2017-06-07 | Outpatient (CLI) | payer OTHER ==
[2017-06-07 18:11] LABS: ANION GAP 11 MEQ/L (8-16); BLOOD UREA NITROGEN 18 MG/DL (7-18); CALCIUM LEVEL 8.8 MG/DL (8.8-10.2); CARBON DIOXIDE LEVEL 27 MEQ/L (21-32); CHLORIDE LEVEL 113 MEQ/L (98-107); CREATININE FOR GFR 0.87 MG/DL (0.55-1.02); GLOMERULAR FILTRATION RATE > 60.0 (>45); GLUCOSE, FASTING 118 MG/DL (80-110); POTASSIUM SERUM 3.8 MEQ/L (3.5-5.1); SODIUM LEVEL 151 MEQ/L (136-145)
== END ==
LOC: M WUC 09:01
PROVIDERS: ATTEND Family Medicine
DX: E87.6 Hypokalemia (principal); E11.9 Type 2 diabetes mellitus without complications

== ENCOUNTER → 2017-07-10 | Outpatient (REF) | payer OTHER ==
[2017-07-10 11:58] LABS: ANION GAP 7 MEQ/L (8-16); BLOOD UREA NITROGEN 20 MG/DL (7-18); CALCIUM LEVEL 9.2 MG/DL (8.8-10.2); CARBON DIOXIDE LEVEL 30 MEQ/L (21-32); CHLORIDE LEVEL 103 MEQ/L (98-107); GLOMERULAR FILTRATION RATE > 60.0 (>45); GLUCOSE, FASTING 145 MG/DL (80-110); POTASSIUM SERUM 3.4 MEQ/L (3.5-5.1); SODIUM LEVEL 140 MEQ/L (136-145)
== END ==
LOC: M LABDRAW1 09:02
PROVIDERS: ATTEND Family Medicine
DX: E83.42 Hypomagnesemia (principal); I10 Essential (primary) hypertension

== ENCOUNTER → 2017-10-13 | Outpatient (CLI) | payer OTHER | LOC: M WHC 06:44 | DX: Z12.31 Encounter for screening mammogram for malignant neoplasm of breast (principal) | CPT/HCPCS: 77067 ==

== ENCOUNTER → 2017-10-26 | Day surgery (SDC) | payer OTHER ==
[~2017-10-26] MED LIST changes: -ATOR80TA59 PO; -CHLO25TA PO; -COLA100C5 PO; -COUM1TAB17 PO; -COUM2.5T17 PO; -GABA-283 PO; -GABA600T PO; -HYDR-3713 PO; -HYDR12.55 PO; +LIDOCAINE 2% INJ 100 MG/5 ML SDV (FOR ANES.) As Ordered; -LISI-538 PO; -METF500T13 PO; -MULT1TAB10 PO; -NAPR500T PO; -NAPR500T3 PO; +NS 1,000 ML IV; -PERC5TAB12 PO; -POTA10CA PO; +PROPOFOL 200 MG/20 ML VIAL As Ordered
== END | disposition home or self-care (01) ==
LOC: M OPP 10:06
DX: Z12.11 Encounter for screening for malignant neoplasm of colon (principal); D12.2 Benign neoplasm of ascending colon; D12.0 Benign neoplasm of cecum; D12.4 Benign neoplasm of descending colon; D12.5 Benign neoplasm of sigmoid colon; K57.30 Diverticulosis of large intestine without perforation or abscess without bleeding; K63.89 Other specified diseases of intestine; K64.8 Other hemorrhoids; I10 Essential (primary) hypertension; E78.5 Hyperlipidemia, unspecified; E11.9 Type 2 diabetes mellitus without complications; G47.8 Other sleep disorders; G47.30 Sleep apnea, unspecified; R06.83 Snoring; Z88.0 Allergy status to penicillin; Z79.899 Other long term (current) drug therapy; Z79.84 Long term (current) use of oral hypoglycemic drugs
CPT/HCPCS: 45385

== ENCOUNTER → 2017-11-28 | Outpatient (CLI) | payer OTHER ==
[2017-11-28 17:29] LABS: ANION GAP 10 MEQ/L (8-16); BLOOD UREA NITROGEN 16 MG/DL (7-18); CARBON DIOXIDE LEVEL 28 MEQ/L (21-32); CHLORIDE LEVEL 104 MEQ/L (98-107); CREATININE FOR GFR 0.79 MG/DL (0.55-1.30); GLOMERULAR FILTRATION RATE > 60.0 (>45); GLUCOSE, FASTING 136 MG/DL (70-100); MAGNESIUM LEVEL 1.8 MG/DL (1.8-2.4); POTASSIUM SERUM 3.5 MEQ/L (3.5-5.1); SODIUM LEVEL 142 MEQ/L (136-145)
[2017-11-28 17:46] LABS: CREATININE, URINE 82.9 MG/DL; MALB URINE SIEMENS 10.8 MG/L
[2017-11-28 18:22] LABS: ESTIMATED AVERAGE GLUCOSE 217 MG/DL (60-110); HEMOGLOBIN A1c 9.2 %
== END ==
LOC: M WUC 09:35
DX: E11.9 Type 2 diabetes mellitus without complications (principal); E83.42 Hypomagnesemia
CPT/HCPCS: 83735

== ENCOUNTER → 2018-02-26 | Outpatient (REF) | payer OTHER ==
[2018-02-26 11:42] LABS: ESTIMATED AVERAGE GLUCOSE 197 MG/DL (60-110); HEMOGLOBIN A1c 8.5 %
== END ==
LOC: M LABDRAW1 08:59
DX: E11.9 Type 2 diabetes mellitus without complications (principal)

== ENCOUNTER → 2018-06-28 | Outpatient (REF) | payer OTHER ==
[2018-06-28 13:14] LABS: ESTIMATED AVERAGE GLUCOSE 183 MG/DL (60-110)
== END ==
LOC: M LABDRAW1 11:58
DX: E11.8 Type 2 diabetes mellitus with unspecified complications (principal)

== ENCOUNTER → 2018-10-04 | Outpatient (REF) | payer OTHER ==
[~2018-10-04] MED LIST changes: +ATOR80TA59 PO; +CHLO25TA PO; +COLA100C5 PO; +COUM1TAB17 PO; +COUM2.5T17 PO; +GABA-843 PO; +GABA-845 PO; +GABA600T4 PO; +HYDR-3713 PO; +HYDR12.55 PO; +KLOR10TA76 PO; -LIDOCAINE 2% INJ 100 MG/5 ML SDV (FOR ANES.) As Ordered; +LISI-538 PO; +MAGN400C3 PO; +METF500T13 PO; +MULT1TAB10 PO; +NAPR-50 PO; +NAPR-885 PO; -NS 1,000 ML IV; +PERC5TAB12 PO; -PROPOFOL 200 MG/20 ML VIAL As Ordered; +VITA200025 PO
[2018-10-04 12:26] LABS: BLOOD UREA NITROGEN 27 MG/DL (7-18); CALCIUM LEVEL 9.3 MG/DL (8.8-10.2); CARBON DIOXIDE LEVEL 26 MEQ/L (21-32); CHLORIDE LEVEL 105 MEQ/L (98-107); CHOLESTEROL LEVEL 159 MG/DL (<200); CHOLESTEROL RISK RATIO 2.092 (<5); CREATININE FOR GFR 1.12 MG/DL (0.55-1.30); GLOMERULAR FILTRATION RATE > 60.0 (>45); GLUCOSE, FASTING 154 MG/DL (70-100); HDL CHOLESTEROL 76 MG/DL (>40); LDL CHOLESTEROL 66 MG/DL (<100); MAGNESIUM LEVEL 1.9 MG/DL (1.8-2.4); NON-HDL-C 83 MG/DL; POTASSIUM SERUM 4.3 MEQ/L (3.5-5.1); SODIUM LEVEL 141 MEQ/L (136-145); TRIGLYCERIDES LEVEL 85 MG/DL (<150)
[2018-10-04 12:31] LABS: TOTAL 25(OH) VITAMIN D 45.7 NG/ML (30.0-100.0)
[2018-10-04 12:43] LABS: HEMOGLOBIN A1c 8.8 %
[2018-10-04 12:48] LABS: MALB URINE SIEMENS 15.4 MG/L; MAU/CREAT RATIO 12.4 MCG/MG (0.0-30.0)
== END ==
LOC: M LABDRAW1 11:39
PROVIDERS: ATTEND Obstetrics & Gynecology
DX: E11.42 Type 2 diabetes mellitus with diabetic polyneuropathy (principal); E83.42 Hypomagnesemia; E78.5 Hyperlipidemia, unspecified; E55.9 Vitamin D deficiency, unspecified

== ENCOUNTER 2018-11-29 14:21 | Inpatient (IN) | payer OTHER ==
[~2018-11-29] VITALS: Ht 162.6 cm; Wt 81.5 kg
[2018-11-29] MEDS ORDERED: SPIR-10 PO (14:51)
[2018-11-29] MEDS ORDERED: NS 500 ML IV ONE (15:00)
[2018-11-29 15:20] LABS: BASO % 0.3 % (0.0-1.0); EOS % 0.3 % (0.0-3.0); HEMOGLOBIN 10.5 g/dl (12.0-15.5); LYMPH # 1.6 10^3/uL (1.5-4.5); LYMPH % 21.4 % (24.0-44.0); MEAN CORPUSCULAR HEMOGLOBIN 29.8 pg (27.0-33.0); MEAN CORPUSCULAR HGB CONC 32.8 g/dl (32.0-36.5); MEAN CORPUSCULAR VOLUME 90.9 fl (80.0-96.0); MONO # 0.7 10^3/uL (0.0-0.8); MONO % 8.5 % (0.0-5.0); NEUTROPHILS # 5.3 10^3/uL (1.8-7.7); PLATELET COUNT, AUTOMATED 212 10^3/uL (150-450); RED BLOOD COUNT 3.52 10^6/uL (4.00-5.40); WHITE BLOOD COUNT 7.6 10^3/uL (4.0-10.0)
--- NOTE | 2018-11-29 15:50 | ECGEPIP ---
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
[2018-11-29 15:55] LABS: INFLUENZA A AMPLIFICATION NEGATIVE (NEGATIVE); INFLUENZA B AMPLIFICATION NEGATIVE (NEGATIVE)
[2018-11-29] MEDS ORDERED: DILUENT IV ONE (16:15)
[2018-11-29] MEDS ORDERED: NS IV ONE (16:15)
[2018-11-29 16:52] LABS: BILIRUBIN,DIRECT 0.1 MG/DL (0.0-0.2); BILIRUBIN,TOTAL 0.6 MG/DL (0.2-1.0); CALCIUM LEVEL 9.2 MG/DL (8.8-10.2); CREATININE FOR GFR 1.5 MG/DL (0.55-1.30); GLOMERULAR FILTRATION RATE 45.1 (>45); POTASSIUM SERUM 3.4 MEQ/L (3.5-5.1); TOTAL PROTEIN 6.2 GM/DL (6.4-8.2)
--- NOTE | 2018-11-29 17:42 | REP ---
ABDOMEN, FLAT UPRIGHT PA CHEST, FOUR VIEWS: HISTORY: Vomiting. Air is present in the small and large intestine. Several air fluid levels are present. There are no dilated loops of intestine. There is no new peritoneum. The lungs are clear. The cardiac silhouette is enlarged. IMPRESSION: Nonspecific bowel gas pattern. Electronically Signed by Benitez Vasquez MD 11/30/2018 08:46 A
[2018-11-29] MEDS ORDERED: ACE65ERTAB PO (18:14)
[2018-11-29] MEDS ORDERED: LISI40TA PO (18:14)
[2018-11-29] MEDS ORDERED: TAB-TAB PO (18:14)
[2018-11-29] MEDS ORDERED: POTA1TAB14 PO (18:14)
[2018-11-29] MEDS ORDERED: METF-877 PO (18:18)
[2018-11-29] MEDS ORDERED: SYST1SOL OU (18:18)
[2018-11-29] MEDS ORDERED: VITA20008 PO (18:19)
[2018-11-29 18:20] LABS: ABG BASE EXCESS -11.2 (-2.0-2.0); ABG HCO3 13.1 MEQ/L (22.0-26.0); ABG O2 SATURATION 97.5 % (95.0-99.0); ABG PARTIAL PRESSURE CO2 25.8 mmHg (35.0-45.0); ABG PARTIAL PRESSURE O2 95.9 mmHg (75.0-100.0); ABG STANDARD HCO3 15.6 MEQ/L (22.0-26.0); ABG TOTAL CO2 13.9 MEQ/L (23.0-31.0); ABG pH (ARTERIAL) 7.325 UNITS (7.350-7.450)
[2018-11-29] MEDS ORDERED: METF500T13 PO (18:20)
[2018-11-29] MEDS ORDERED: ONDANSETRON 4MG/2ML VIAL (J2405) IV PRN (18:45)
[2018-11-29] MEDS ORDERED: GLUCAGON FOR INJ 1 MG VIAL (J1610) SC PRN (18:45)
[2018-11-29] MEDS ORDERED: GLUCOSE 4 GM CHEW TABLET PO PRN (18:45)
[2018-11-29] MEDS ORDERED: POLYVINYL ALCOHOL OPHTH SOLN 15 ML(LIQUITEARS) OU PRN (18:45)
[2018-11-29] MEDS ORDERED: ACETAMINOPHEN 650MG ER TAB (TYLENOL ARTHRITIS) PO PRN (18:45)
[2018-11-29] MEDS ORDERED: DEXTROSE 50% 50 ML SYRINGE IV PRN (18:45)
[2018-11-29] MEDS: NS 1,000 ML IV SCH (19:00)
--- NOTE | 2018-11-29 19:33 | REP ---
CT abdomen and pelvis without IV or oral contrast: History: Abdomen pain. No comparison CT study. Comparison is made with today's abdomen radiographs. CT findings: Preliminary digital team guide radiographs demonstrate a nonspecific air and fluid filled loops of small and large bowel. The lung bases show linear fibrosis versus discoid atelectasis in the left lower lobe. No pleural effusion is seen. No upper abdominal ascites is seen. The liver and the spleen are normal in size homogeneous in texture. No abnormalities noted in the gallbladder. Pancreas is unremarkable as well. No adrenal lesion is observed on either side. There is no evidence of intrarenal calculus or hydronephrosis. No retroperitoneal mass or adenopathy is observed. The appendix is not confidently identified but there is no evidence of pericecal or cecal inflammation to suggest appendicitis. The ileocecal valve is observed and is unremarkable. Small and large intestinal bowel loops show no evidence of obstructive lesion. No uterine or ovarian abnormality is observed. Urinary bladder is unremarkable. There is fairly heavy vascular calcification. There is a small umbilical hernia transmitting abdominal fat. No other abdominal wall defect is seen. Bone window settings show no acute bony abnormality. Impression: Small umbilical hernia transmitting abdominal fat. Otherwise no acute abdominal or pelvic abnormality. Electronically Signed by Woody Buchanan MD 11/29/2018 08:58 P
[2018-11-29] MEDS: KCL 10MEQ/100ML SWI (KRUN) 10 MEQ in APPROPRIATE DILUENT 1 EA IV SCH ×2 (20:30→20:45)
[2018-11-29] MEDS: GABAPENTIN 300 MG CAP PO SCH (20:30)
--- NOTE | 2018-11-29 20:50 | HPE ---
DATE OF ADMISSION: 11/29/2018 63-year-old female with a past medical history of hypertension, diabetes, who presents to the emergency room with diarrhea, nausea and vomiting for the past 3 days. She has a subjective feeling of fevers, aches and chills. She has been around her grandchildren; however, none of them have been ill. When she came to the emergency room, she was found to be in acute kidney injury and seemed very dehydrated and was giving 2.5 liters of normal saline and IV Zofran. She feels better at this time. Her potassium was repleted. She will be admitted for further management. PAST MEDICAL HISTORY: Again, past medical history of: 1. Hypertension. 2. Diabetes. ALLERGIES: She has drug allergies to PENICILLIN. FAMILY HISTORY: Noncontributory. SOCIAL HISTORY: The patient denies tobacco, alcohol, or illicit drugs. MEDICATIONS: She takes at home: - Tylenol 650 mg by mouth three times a day as needed - atorvastatin 80 mg by mouth daily - chlorthalidone 25 mg by mouth daily - cholecalciferol 2000 units by mouth daily - gabapentin 300 mg by mouth three times a day - Lisinopril 20 mg by mouth daily - magnesium 400 mg by mouth daily - metformin 500 mg by mouth twice a day - polyethylene glycol as needed - potassium chloride 20 mEq by mouth daily - spironolactone 12.5 mg by mouth daily - multivitamin one tablet by mouth daily REVIEW OF SYSTEMS: Negative for all ten major systems except what is mentioned in the history of present illness. PHYSICAL EXAMINATION: VITAL SIGNS: Blood pressure 102/58, heart rate 72 and regular, respiratory rate 16, temperature 98.6, oxygen saturation 98% on room air. Head is atraumatic, normocephalic. Neck is supple with no jugular venous distention (JVD). Lungs clear to auscultation. S1, S2 audible. No murmurs appreciated. Abdomen is soft. Positive bowel sounds. No pedal edema. Skin is intact. Neurologic examination, the patient is awake, alert and oriented times three. LABORATORIES: WBC 7.6, hemoglobin 10.5, hematocrit 32, platelets 212,000. Sodium 142, potassium 3.4, chloride 118, CO2 of 17, BUN 37, creatinine 1.5, lactic acid 2.3, lipase 197. IMPRESSION: 1. Acute viral gastroenteritis. 2. Acute kidney injury. 3. Hypokalemia. PLAN: The patient is to be admitted to the medical/surgical floor. We will continue IV hydration with normal saline at 125 mL an hour. Her acute kidney injury is likely prerenal in origin. We will monitor BUN and creatinine and trend as we give judicious fluids. Her potassium has been repleted. We will repeat a basic metabolic panel (BMP) to followup the potassium trend. I am going to hold off on all of her diuretics and her metformin at this time until her acute kidney injury resolves. Otherwise, we will continue all of her other preadmission medications and continue her care on the medical/surgical floor.
[2018-11-29] MEDS: ACETAMINOPHEN TAB 650MG DOSE (2X325MG) PO PRN (22:15)
[2018-11-29] MEDS ORDERED: cefTRIAXone SOD 1 GM in D5W MINI-BAG PLUS 50 ML IV ONE (22:30)
[2018-11-29 22:41] LABS: APPEARANCE, URINE CLEAR (CLEAR); BACTERIA, URINE AUTO NEGATIVE (NEGATIVE); BILIRUBIN, URINE AUTO NEGATIVE (NEGATIVE); BLOOD, URINE BLOOD NEGATIVE (NEGATIVE); COLOR, URINE YELLOW (YELLOW); GLUCOSE, URINE (UA) AUTO NEGATIVE (NEGATIVE); KETONE, URINE AUTO NEGATIVE (NEGATIVE); LEUKOCYTE ESTERASE, URINE AUTO NEGATIVE (NEGATIVE); MUCUS, URINE SMALL (NEGATIVE); NITRITE, URINE AUTO NEGATIVE (NEGATIVE); PROTEIN, URINE AUTO NEGATIVE (NEGATIVE); RBC, URINE AUTO 0 /HPF (0-3); SPECIFIC GRAVITY URINE AUTO 1.012 (1.002-1.035); SQUAMOUS EPITHELIAL CELL UR AU 0 /HPF (0-6); UROBILINOGEN, URINE AUTO 0.2 mg/dL (0.0-2.0); WBC, URINE AUTO 0 /HPF (0-3)
[2018-11-29 22:52] LABS: BASO % 0.5 % (0.0-1.0); EOS % 0.2 % (0.0-3.0); LYMPH # 1.6 10^3/uL (1.5-4.5); LYMPH % 19.3 % (24.0-44.0); MEAN CORPUSCULAR HGB CONC 33.3 g/dl (32.0-36.5); MONO # 0.7 10^3/uL (0.0-0.8); NEUTROPHILS # 5.9 10^3/uL (1.8-7.7); NEUTROPHILS % 71.1 % (36.0-66.0); PLATELET COUNT, AUTOMATED 134 10^3/uL (150-450); RED BLOOD COUNT 3.55 10^6/uL (4.00-5.40); WHITE BLOOD COUNT 8.2 10^3/uL (4.0-10.0)
[2018-11-30 01:44] VITALS: BP 108/54
[2018-11-30 06:00] VITALS: BP 147/71
[2018-11-30 06:26] LABS: BLOOD UREA NITROGEN 23 MG/DL (7-18); CALCIUM LEVEL 8.5 MG/DL (8.8-10.2); CARBON DIOXIDE LEVEL 12 MEQ/L (21-32); CHLORIDE LEVEL 123 MEQ/L (98-107); CREATININE FOR GFR 1.11 MG/DL (0.55-1.30); GLOMERULAR FILTRATION RATE > 60.0 (>45); GLUCOSE, FASTING 80 MG/DL (70-100); POTASSIUM SERUM 3.9 MEQ/L (3.5-5.1); SODIUM LEVEL 142 MEQ/L (136-145)
[2018-11-30] MEDS: NS 1,000 ML IV SCH ×3 (06:34→16:30)
[2018-11-30] MEDS: ACETAMINOPHEN TAB 650MG DOSE (2X325MG) PO PRN ×2 (06:34→21:04)
[2018-11-30] MEDS: HumaLOG INSULIN (NovoLOG) PER UNIT SC SCH ×3 (07:30→17:30)
[2018-11-30 08:51] LABS: BASO % 0.3 % (0.0-1.0); EOS % 0.3 % (0.0-3.0); HEMATOCRIT 32.9 % (36.0-47.0); HEMOGLOBIN 10.7 g/dl (12.0-15.5); LYMPH # 1.7 10^3/uL (1.5-4.5); LYMPH % 28.7 % (24.0-44.0); MEAN CORPUSCULAR HEMOGLOBIN 31.2 pg (27.0-33.0); MEAN CORPUSCULAR HGB CONC 32.5 g/dl (32.0-36.5); MEAN CORPUSCULAR VOLUME 95.9 fl (80.0-96.0); MONO # 0.4 10^3/uL (0.0-0.8); MONO % 7.4 % (0.0-5.0); NEUTROPHILS # 3.7 10^3/uL (1.8-7.7); NEUTROPHILS % 62.8 % (36.0-66.0); PLATELET COUNT, AUTOMATED 180 10^3/uL (150-450); RED BLOOD COUNT 3.43 10^6/uL (4.00-5.40)
[2018-11-30] MEDS: GABAPENTIN 300 MG CAP PO SCH ×4 (09:04→21:05)
[2018-11-30] MEDS: POTASSIUM CHLORIDE 10 MEQ SR TABLET PO SCH (09:04)
[2018-11-30] MEDS: ATORVASTATIN 20 MG TAB PO SCH (09:04)
[2018-11-30] MEDS: VITAMIN D 1,000 INTERNATIONAL UNITS TABLET PO SCH (09:04)
[2018-11-30] MEDS ORDERED: POLYVINYL ALCOHOL OPHTH SOLN 15 ML(LIQUITEARS) OU PRN (09:30)
[2018-11-30] MEDS: MEROPENEM INJ 1 GM in APPROPRIATE DILUENT 1 EA IV SCH ×2 (11:11→18:17)
[2018-11-30] MEDS: MAG SULF 1GM/100ML (MAG RUN) 1 GM in APPROPRIATE DILUENT 1 EA IV SCH ×3 (13:31→17:06)
[2018-11-30 14:00] VITALS: BP 171/98
[2018-11-30 15:00] VITALS: BP 91/70
[2018-11-30 16:30] VITALS: BP 158/89
--- NOTE | 2018-11-30 17:57 | IPNPDOC ---
Subjective Date Seen The patient was seen on 11/30/18. Subjective Chief Complaint/HPI Patient seen and examined at bedside today. She reports that she has had several episodes of diarrhea since being admitted. She also continues to be afebrile this morning. When addressing the patient this afternoon with her daughter at the bedside, the patient denied any complaints of pain or other focal concerns. The daughter endorses that the patient has been generally weak over the last 2 weeks, and this culminated with the onset of diarrhea over the last 24 hours. The patient has been transferred to the PCU for tachycardia and borderline low blood pressures in the setting of fevers. Objective Physical Examination General Exam: Positive: Alert, Cooperative, Mild Distress (2/2 generalized lethargy) ENT Exam: Positive: Atraumatic, Mucous membr. moist/pink Neck Exam: Negative: JVD Chest Exam: Positive: Clear to auscultation, Normal air movement Heart Exam: Positive: Tachycardic, Normal S1, Normal S2 Abdomen Exam: Positive: Soft; Negative: Tenderness Extremity Exam: Negative: Tenderness, Swelling Assessment /Plan Plan/VTE VTE Prophylaxis Ordered?: Yes Plan Sepsis 2/2 possible UTI/GI Source Initial urinalysis and CT abdomen/pelvis unrevealing--repeat UA ordered Meropenem, IV fluid hydration ordered Infectious diseases consulted for further delineation of infectious etiology Preliminary blood cultures positive for gram-negative rods Continue meropenem Repeat blood cultures ordered ID consulted Lactic acidosis secondary to above IV fluid hydration ordered Non-anion gap metabolic acidosis secondary to diarrhea GI panel pending Hypomagnesemia secondary to diarrhea Magnesium supplementation ordered Acute Kidney Injury 2/2 Diarrhea, Volume Depletion, resolved Hold nephrotoxins Continue IV fluid hydration Hypertension Antihypertensives on hold secondary to borderline hypotension Diabetes mellitus Insulin sliding scale Dyslipidemia Continue statin DVT prophylaxis Heparin SC Dispo--pending clinical improvement. VS, I&O, 24H, Fishbone Vital Signs/I&O Vital Signs Date Time Temp Pulse Resp B/P (MAP) Pulse Ox O2 Delivery O2 Flow Rate FiO2 11/30/18 16:30 98.6 124 20 158/89 (112) 99 11/29/18 14:22 Room Air I&O- Last 24 Hours up to 6 AM 11/30/18 06:00 Intake Total 350 ml Balance 350 ml Laboratory Data 24H LABS Laboratory Tests 2 11/29/18 18:00: Blood Gas Bicarbonate Standard 15.6L, Arterial Blood pH 7.325L, Arterial Blood Partial Pressure CO2 25.8L, Arterial Blood Partial Pressure O2 95.9, Arterial Blood Total CO2 13.9L, Arterial Blood HCO3 13.1L, Arterial Blood Base Excess - 11.2L, Arterial Blood Oxygen Saturation 97.5 11/29/18 19:41: Lactic Acid Followup at 4 Hours 2.9*H 11/29/18 22:33: Urine Appearance CLEAR, Urine Color YELLOW, Urine pH 5.0, Urine Specific [place] 1.012, Urine Protein NEGATIVE, Urine Glucose (UA) NEGATIVE, Urine Ketones NEGAT ALANNA, Urine Urobilinogen 0.2, Urine Bilirubin NEGATIVE, Urine Leukocyte Esterase NEGATIVE, Urine Blood NEGATIVE, Urine Nitrite NEGATIVE, Urine WBC (Auto) 0, Urine RBC (Auto) 0, Urine Hyaline Casts (Auto) 0, Urine Bacteria (Auto) NEGATIVE, Urine Squamous Epithelial Cells 0, Urine Mucus (Auto) SMALL, Urine Sperm (Auto) 11/29/18 22:47: Immature Granulocyte % (Auto) 0.9, White Blood Count 8.2, Red Blood Count 3.55L, Hemoglobin 11.0L, Hematocrit 33.0L, Mean Corpuscular Volume 93.0, Mean Corpuscular Hemoglobin 31.0, Mean Corpuscular Hemoglobin Concent 33.3, Red Cell Distribution Width 15.9H, Platelet Count 134L, Neutrophils (%) (Auto) 71.1H, Lymphocytes (%) (Auto) 19.3L, Monocytes (%) (Auto) 8.0H, Eosinophils (%) (Auto) 0.2, Basophils (%) (Auto) 0.5, Neutrophils # (Auto) 5.9, Lymphocytes # (Auto) 1.6, Monocytes # (Auto) 0.7, Eosinophils # (Auto) 0.0, Basophils # (Auto) 0.0, Nucleated Red Blood Cells % (auto) 0.4H 11/30/18 05:43: Anion Gap 7L, Glomerular Filtration Rate > 60.0, Blood Urea Nitrogen 23H, Creatinine 1.11, Sodium Level 142, Potassium Level 3.9, Chloride Level 123H, Carbon Dioxide Level 12L, Calcium Level 8.5L 11/30/18 08:40: Immature Granulocyte % (Auto) 0.5, White Blood Count 6.0, Red Blood Count 3.43L, Hemoglobin 10.7L, Hematocrit 32.9L, Mean Corpuscular Volume 95.9, Mean Corpuscular Hemoglobin 31.2, Mean Corpuscular Hemoglobin Concent 32.5, Red Cell Distribution Width 16.1H, Platelet Count 180, Neutrophils (%) (Auto) 62.8, Lymphocytes (%) (Auto) 28.7, Monocytes (%) (Auto) 7.4H, Eosinophils (%) (Auto) 0.3, Basophils (%) (Auto) 0.3, Neutrophils # (Auto) 3.7, Lymphocytes # (Auto) 1.7, Monocytes # (Auto) 0.4, Eosinophils # (Auto) 0.0, Basophils # (Auto) 0.0, Nucleated Red Blood Cells % (auto) 0.8H, Magnesium Level 1.1L 11/30/18 12:06: Bedside Glucose (Misc Panel) 74L 11/30/18 15:42: C-Reactive Protein, Quantitative 12.20H CBC/BMP Laboratory Tests 11/29/18 22:47 Red Blood Count 3.55 L, Mean Corpuscular Volume 93.0, Mean Corpuscular Hemog lobin 31.0, Mean Corpuscular Hemoglobin Concent 33.3, Red Cell Distribution Width 15.9 H, Neutrophils (%) (Auto) 71.1 H, Lymphocytes (%) (Auto) 19.3 L, Monocytes (%) (Auto) 8.0 H, Eosinophils (%) (Auto) 0.2, Basophils (%) (Auto) 0.5, Neutrophils # (Auto) 5.9, Lymphocytes # (Auto) 1.6, Monocytes # (Auto) 0.7, Eosinophils # (Auto) 0.0, Basophils # (Auto) 0.0 11/30/18 05:43 Calcium Level 8.5 L 11/30/18 08:40 Red Blood Count 3.43 L, Mean Corpuscular Volume 95.9, Mean Corpuscular Hemoglobin 31.2, Mean Corpuscular Hemoglobin Concent 32.5, Red Cell Distribution Width 16.1 H, Neutrophils (%) (Auto) 62.8, Lymphocytes (%) (Auto) 28.7, Monocytes (%) (Auto) 7.4 H, Eosinophils (%) (Auto) 0.3, Basophils (%) (Auto) 0.3, Neutrophils # (Auto) 3.7, Lymphocytes # (Auto) 1.7, Monocytes # (Auto) 0.4, Eosinophils # (Auto) 0.0, Basophils # (Auto) 0.0 Microbiology Microbiology 11/30/18 Blood Culture, Received Pending 11/30/18 Blood Culture, Received Pending 11/29/18 Blood Culture - Preliminary, Resulted 11/29/18 Blood Culture - Preliminary, Resulted 11/29/18 Respiratory Virus Panel (PCR) ([facility]) - Final, Complete MERCY JOSE MD Nov 30, 2018 17:57
[2018-11-30 20:00] VITALS: BP 130/60
[2018-11-30] MEDS: HEPARIN SOD (PORCINE) 5000 UNITS/ML VIAL SQ SCH (21:05)
[2018-11-30] MEDS ORDERED: NS 1,000 ML IV ONE (23:45)
[2018-12-01] VITALS (11 sets, daily range): BP systolic 60–110; BP diastolic 30–78
[2018-12-01] MEDS: NS 1,000 ML IV SCH (01:12)
[2018-12-01] MEDS ORDERED: NS 1,000 ML IV ONE (01:15)
[2018-12-01] MEDS: MEROPENEM INJ 1 GM in APPROPRIATE DILUENT 1 EA IV SCH (02:36)
[2018-12-01] MEDS ORDERED: NS 500 ML IV ONE (03:45)
--- NOTE | 2018-12-01 03:58 | REP ---
Clinical: Weakness. Technique: AP and cross-table lateral views of the chest. Comparison: 03/05/2017. Findings: Examination is limited by technique, underpenetration, and poor inspiratory effort. Chronic changes are suggested. Subtle right lower lobe atelectasis cannot be excluded. No obvious effusion. No pneumothorax. Skeletal structures intact. Impression: Limited examination. Cannot exclude right lower lobe infiltrate/atelectasis. Electronically Signed by Manuel Morris MD 12/01/2018 03:49 A
[2018-12-01] MEDS: HEPARIN SOD (PORCINE) 5000 UNITS/ML VIAL SQ SCH ×3 (05:12→21:15)
[2018-12-01 05:40] LABS: HEMATOCRIT 27.9 % (36.0-47.0); HEMOGLOBIN 9.5 g/dl (12.0-15.5); MEAN CORPUSCULAR HEMOGLOBIN 30.9 pg (27.0-33.0); MEAN CORPUSCULAR HGB CONC 34.1 g/dl (32.0-36.5); MEAN CORPUSCULAR VOLUME 90.9 fl (80.0-96.0); PLATELET COUNT, AUTOMATED 167 10^3/uL (150-450); RED BLOOD COUNT 3.07 10^6/uL (4.00-5.40); WHITE BLOOD COUNT 6.9 10^3/uL (4.0-10.0)
[2018-12-01 06:10] LABS: BLOOD UREA NITROGEN 11 MG/DL (7-18); CALCIUM LEVEL 7.3 MG/DL (8.8-10.2); CARBON DIOXIDE LEVEL 15 MEQ/L (21-32); CHLORIDE LEVEL 124 MEQ/L (98-107); CREATININE FOR GFR 0.88 MG/DL (0.55-1.30); GLOMERULAR FILTRATION RATE > 60.0 (>45); GLUCOSE, FASTING 107 MG/DL (70-100); SODIUM LEVEL 147 MEQ/L (136-145)
[2018-12-01 06:13] LABS: BASOPHILS 1 % (0-4); EOSINOPHILS 1 % (0-5); LYMPHOCYTES 30 % (16-52); MONOCYTES 4 % (0-8); NEUTROPHILS 61 % (35-75)
[2018-12-01 06:15] LABS: HYPOCHROMASIA 1+; PLATELET ESTIMATE NORMAL (NORMAL)
[2018-12-01 06:16] LABS: CRENATED RBC 1+; POIKILOCYTOSIS 1+; TEAR DROP CELLS 1+
[2018-12-01 06:17] LABS: HELMET CELLS 1+
[2018-12-01] MEDS ORDERED: NS 0.45% 1,000 ML IV SCH (06:30)
[2018-12-01] MEDS ORDERED: MAG SULF 1GM/100ML (MAG RUN) 1 GM in APPROPRIATE DILUENT 1 EA IV ONE (06:30)
[2018-12-01] MEDS ORDERED: POTASSIUM CHLORIDE 10 MEQ SR TABLET PO ONE ×2 (06:30→18:00)
[2018-12-01] MEDS: HumaLOG INSULIN (NovoLOG) PER UNIT SC SCH ×3 (07:30→17:30)
[2018-12-01] MEDS: NYSTATIN 100,000 UNITS/GM TOPICAL PWD 15 GM TOP SCH (08:44)
[2018-12-01] MEDS: VITAMIN D 1,000 INTERNATIONAL UNITS TABLET PO SCH (08:44)
[2018-12-01] MEDS: ATORVASTATIN 20 MG TAB PO SCH (08:44)
[2018-12-01] MEDS: GABAPENTIN 300 MG CAP PO SCH ×3 (08:45→19:57)
[2018-12-01] MEDS: POTASSIUM CHLORIDE 10 MEQ SR TABLET PO SCH (08:45)
[2018-12-01] MEDS: cefTRIAXone SOD 2 GM in D5W MINI-BAG PLUS 50 ML IV SCH (13:27)
--- NOTE | 2018-12-01 14:25 | IPNPDOC ---
Subjective Date Seen The patient was seen on 12/01/18. Subjective Chief Complaint/HPI Patient seen and examined at bedside. She reports that she is feeling better today and less weak/shaky. The patient also notes that her diarrhea is starting to slow down. The patient has remained afebrile since yesterday afternoon. Objective Physical Examination General Exam: Positive: Alert, Cooperative, No Acute Distress ENT Exam: Positive: Atraumatic, Mucous membr. moist/pink Neck Exam: Negative: JVD Chest Exam: Positive: Clear to auscultation, Normal air movement Heart Exam: Positive: Tachycardic, Normal S1, Normal S2 Abdomen Exam: Positive: Soft; Negative: Tenderness Extremity Exam: Negative: Tenderness, Swelling Assessment /Plan Plan/VTE VTE Prophylaxis Ordered?: Yes Plan Sepsis 2/[address] abdomen/pelvis unrevealing GI Panel notable for Salmonella, Enteroaggregative E. Coli, and Enteropathogenic E. Coli IV fluid hydration ordered--Patient feeling better today, states that she feels less weak/shaky this AM. Better appetite also reported. IVF may be discontinued if the patient tolerates a diet today. Infectious diseases on board--IV Abx switched to Rocephin Preliminary blood cultures positive for gram-negative rods from 11/29 Repeat blood cultures from 11/30 negative thus far ID consulted--Cont IV Rocephin Lactic acidosis secondary to above IV fluid hydration ordered Non-anion gap metabolic acidosis secondary to diarrhea GI panel as noted above Hypomagnesemia secondary to diarrhea Magnesium supplementation ordered Acute Kidney Injury 2/2 Diarrhea, Volume Depletion, resolved Hold nephrotoxins Continue IV fluid hydration Hypertension Antihypertensives on hold secondary to borderline hypotension Diabetes mellitus Insulin sliding scale Dyslipidemia Continue statin DVT prophylaxis Heparin SC Dispo--pending clinical improvement. VS, I&O, 24H, Fishbone Vital Signs/I&O Vital Signs Date Time Temp Pulse Resp B/P (MAP) Pulse Ox O2 Delivery O2 Flow Rate FiO2 12/01/18 12:00 97.2 98 20 98/56 (70) 98 11/29/18 14:22 Room Air I&O- Last 24 Hours up to 6 AM 12/01/18 06:00 Intake Total 4680 ml Output Total 61 ml Balance 4619 ml Laboratory Data 24H LABS Laboratory Tests 2 11/30/18 15:42: C-Reactive Protein, Quantitative 12.20H 11/30/18 18:03: Bedside Glucose (Misc Panel) 124H 11/30/18 18:09: Urine Color YELLOW, Urine Appearance CLOUDYH, Urine pH 5.0, Urine Specific [place] 1.011, Urine Protein 1+H, Urine Glucose (UA) NEGATIVE, Urine Ketones NEGATIVE, Urine Blood 3+H, Urine Nitrite NEGATIVE, Urine Bilirubin NEGATIVE, Urine Urobilinogen 0.2, Urine Leukocyte Esterase 3+H, Urine WBC (Auto) TNTCH, Urine RBC (Auto) TNTCH, Urine Hyaline Casts (Auto) 0, Urine Bacteria (Auto) NEGATIVE, Urine Squamous Epithelial Cells 1, Urine Sperm (Auto) 11/30/18 20:04: Bedside Glucose (Misc Panel) 128H 12/01/18 01:29: Lactic Acid Level 1.3 12/01/18 05:05: HIV Antigen/Antibody Combo Qual NEGATIVE 12/01/18 05:09: Nucleated Red Blood Cells % (auto) 0.3H, Neutrophils 61, Band Neutrophils 3, Lymphocytes (Manual) 30, Monocytes (Manual) 4, Eosinophils (Manual) 1, Basophils (Manual) 1, Platelet Estimate NORMAL, Hypochromasia 1+, Poikilocytosis 1+, Tear Drop Cells 1+, Helmet Cells 1+, Crenated Cell 1+, Anion Gap 8, Glomerular Filtration Rate > 60.0, Blood Urea Nitrogen 11#, Creatinine 0.88, Sodium Level 147H, Potassium Level 3.0#L, Chloride Level 124H, Carbon Dioxide Level 15L, C alcium Level 7.3L, Magnesium Level 1.6L, C-Reactive Protein, Quantitative 11.00H 12/01/18 11:22: Bedside Glucose (Misc Panel) 65L 12/01/18 13:26: Bedside Glucose (Misc Panel) 81 CBC/BMP Laboratory Tests 12/01/18 05:09 Red Blood Count 3.07 L, Mean Corpuscular Volume 90.9, Mean Corpuscular Hemoglobin 30.9, Mean Corpuscular Hemoglobin Concent 34.1, Red Cell Distribution Width 15.7 H, Calcium Level 7.3 L Microbiology Microbiology 11/30/18 Blood Culture - Preliminary, Resulted No growth after 24 hours . All specim... 11/30/18 Blood Culture - Preliminary, Resulted No growth after 24 hours . All specim... 11/29/18 Blood Culture - Preliminary, Resulted 11/29/18 Blood Culture - Preliminary, Resulted 11/30/18 Gastrointestinal Tract Panel (PCR) - Final, Resulted Salmonella Enteroaggregative E.coli Enteropathogenic E.coli 11/30/18 , Resulted Pending 11/29/18 Respiratory Virus Panel (PCR) ([facility]) - Final, Complete 11/30/18 Urine Culture - Final, Complete MERCY JOSE MD Dec 01, 2018 14:25
--- NOTE | 2018-12-01 16:06 | CR ---
DATE OF CONSULTATION: 11/30/2018 Asked to consult by hospitalist for evaluation of gram-negative bacteremia in the setting of diarrhea. HISTORY OF PRESENT ILLNESS: Mrs. Horn is a 63-year-old [place]inean-speaking female from [facility] [place], who was admitted with a 3-day history of diarrhea, nausea, and vomiting. The patient had fever, shaking chills, and the day of admission she was having generalized body aches. She lives with her daughter and her two grandchildren. None of them have been ill. She does not eat out very often. The patient was admitted to [facility]. She had mild acute injury with hypokalemia. She was given 2.5 liters of normal saline and intravenous (IV) Zofran. The next day the patient was a little more lethargic and weak. There was concern of worsening lactic acidosis, and therefore she was transferred to progressive care unit (PCU). When I took the history from the patient, she stated that she was feeling better, that her body aches had resolved. She had developed in the hospital hematuria without dysuria or frequency. She did not have urinary symptoms on admission. PAST MEDICAL HISTORY: Significant for: 1. Hypertension. 2. Diabetes. 3. Obesity. 4. Diabetic neuropathy. 5. Chronic constipation. 6. Hyperlipidemia. 7. Osteoarthritis. PAST SURGICAL HISTORY: She had bilateral knee replacements done by [facility] 2 years ago. SOCIAL HISTORY: She is from [facility] [place]. She is [place]inean speaking. She lives with her daughter and two grandchildren. Her daughter is . She denies any tobacco, alcohol, or drug use. ALLERGIES: PENICILLIN. FAMILY HISTORY: Nonrevealing. REVIEW OF SYSTEMS: She had some nausea, vomiting, and diarrhea on admission, fever and shaking chills with rigors. She also was having generalized body aches. She has hematuria. No dysuria, frequency, or flank pain. No headache or neck stiffness. No upper or lower extremity weakness. PHYSICAL EXAMINATION: She is an pleasant female, mildly weak but in no acute distress. Temperature is 99, pulse 129, respirations 20, blood pressure 130/60, oxygen saturation 99% on room air. HEART: Normal S1, S2, tachycardiac. No murmurs, rubs, or gallops appreciated. LUNGS: Clear. No wheezes, rales, or rhonchi. ABDOMEN: Obese, soft, mildly tender in the suprapubic area. BACK: No costovertebral angle (CVA) or lumbosacral tenderness. EXTREMITIES: Trace edema bilaterally. No clubbing or cyanosis. Joints, hips, and knees bilateral normal range of motion. She has bilateral knee replacement , well-healed scars. NECK: Supple. No jugular venous distention (JVD). No bruits. LABORATORY DATA: White count on admission was normal. Today was 6, hemoglobin 10.7, hematocrit 32.9, platelets 180, 62% neutrophils, 28% lymphocytes, 7% monocytes. Sodium 142, potassium 3.9, chloride 123, bicarbonate 12, BUN 23, creatinine 1.1, glucose 80, lactic acid was 2.3 on admission, up to 2.9, calcium 8.5, magnesium 1.1. AST 18, ALT 19, alkaline phosphatase 53, total protein 6.20, albumin 3. Blood cultures were positive for gram-negative rods on November 29. Results of identification are still pending. Respiratory panel is negative. Repeat blood cultures two sets were ordered for November. Gastrointestinal (GI) panel was positive for Salmonella and enteropathogenic Escherichia (E) coli. Urinalysis done on admission had 0 white cells, 0 red cells. On November 30, urinalysis had many white cells and many red cells with +3 leukocyte esterase. IMAGING STUDIES: CT abdomen and pelvis showed small umbilical hernia; otherwise no acute abdominal or pelvic abnormality. Chest x-ray, PA and lateral, was limited but cannot rule out right lower lobe atelectasis/infiltrate. A 63-year-old female who presented to the hospital with a gastrointestinal (GI) illness nausea, vomiting, diarrhea, fever, and rigors. The patient has Salmonella gastroenteritis with bacteremia. She also has developed urinary symptoms with hematuria, and urinalysis today had pyuria and red blood cells. Could be from Salmonella as well, which has been reported to infect urinary tract and can cause pyelonephritis as well. The patient was septic and therefore transferred to the progressive care unit (PCU) for more intravenous (IV) fluids. She also has developed metabolic acidosis. MEDICATIONS: - potassium chloride - nystatin under the breast - meropenem 1 gram IV every 8 hours - Lipitor 80 mg by mouth daily - vitamin D 2000 units daily - insulin sliding scale - gabapentin 300 mg by mouth three times a day - Zofran as needed Risk factors for Salmonella bacteremia include is advanced age, malignancy, HIV infection, immunosuppression, liver disease. Also patients who are from [place] could have schistosomiasis leading to Salmonella in the urine and bacteremia. PLAN: Discontinue IV meropenem. Drug of choice would be fluoroquinolones or ceftriaxone. Will obtain HIV testing, urine for schistosomiasis, bladder ultrasound at a later time, outpatient consultation for cystoscopy. Public health will be notified regarding Salmonella bacteremia. Contact isolation.
[2018-12-01] MEDS ORDERED: SLF 3 ML SYR IV PRN (18:45)
[2018-12-01] MEDS: ACETAMINOPHEN TAB 650MG DOSE (2X325MG) PO PRN (19:57)
[2018-12-01] MEDS: SLF 3 ML SYR IV SCH (21:15)
[2018-12-02 04:00] VITALS: BP 102/60
[2018-12-02 04:05] VITALS: BP 102/60
[2018-12-02] MEDS: HEPARIN SOD (PORCINE) 5000 UNITS/ML VIAL SQ SCH ×3 (05:31→22:04)
[2018-12-02] MEDS: SLF 3 ML SYR IV SCH ×3 (05:33→22:00)
[2018-12-02 05:38] LABS: BASO % 0.3 % (0.0-1.0); EOS # 0.1 10^3/uL (0.0-0.50); EOS % 1.7 % (0.0-3.0); HEMATOCRIT 30.1 % (36.0-47.0); HEMOGLOBIN 10.1 g/dl (12.0-15.5); LYMPH # 1.9 10^3/uL (1.5-4.5); LYMPH % 29.4 % (24.0-44.0); MEAN CORPUSCULAR HGB CONC 33.6 g/dl (32.0-36.5); MEAN CORPUSCULAR VOLUME 92.3 fl (80.0-96.0); MONO # 0.7 10^3/uL (0.0-0.8); MONO % 11.1 % (0.0-5.0); NEUTROPHILS # 3.6 10^3/uL (1.8-7.7); NEUTROPHILS % 56.9 % (36.0-66.0); PLATELET COUNT, AUTOMATED 154 10^3/uL (150-450); RED BLOOD COUNT 3.26 10^6/uL (4.00-5.40); WHITE BLOOD COUNT 6.4 10^3/uL (4.0-10.0)
[2018-12-02 05:51] LABS: BLOOD UREA NITROGEN 7 MG/DL (7-18); CALCIUM LEVEL 7.3 MG/DL (8.8-10.2); CARBON DIOXIDE LEVEL 18 MEQ/L (21-32); CHLORIDE LEVEL 119 MEQ/L (98-107); CREATININE FOR GFR 0.86 MG/DL (0.55-1.30); GLOMERULAR FILTRATION RATE > 60.0 (>45); GLUCOSE, FASTING 82 MG/DL (70-100); MAGNESIUM LEVEL 1.5 MG/DL (1.8-2.4); POTASSIUM SERUM 3.4 MEQ/L (3.5-5.1); SODIUM LEVEL 144 MEQ/L (136-145)
[2018-12-02] MEDS ORDERED: POTASSIUM CHLORIDE 10 MEQ SR TABLET PO ONE (06:45)
[2018-12-02] MEDS ORDERED: MAG SULF 1GM/100ML (MAG RUN) 1 GM in APPROPRIATE DILUENT 1 EA IV ONE (06:45)
[2018-12-02] MEDS: HumaLOG INSULIN (NovoLOG) PER UNIT SC SCH ×3 (07:30→17:30)
[2018-12-02 08:00] VITALS: BP 106/64
[2018-12-02] MEDS: VITAMIN D 1,000 INTERNATIONAL UNITS TABLET PO SCH (09:34)
[2018-12-02] MEDS: GABAPENTIN 300 MG CAP PO SCH ×3 (09:35→22:03)
[2018-12-02] MEDS: ATORVASTATIN 20 MG TAB PO SCH (09:35)
[2018-12-02] MEDS: POTASSIUM CHLORIDE 10 MEQ SR TABLET PO SCH (09:36)
[2018-12-02] MEDS: NYSTATIN 100,000 UNITS/GM TOPICAL PWD 15 GM TOP SCH (09:36)
[2018-12-02 12:00] VITALS: BP 112/68
[2018-12-02] MEDS: cefTRIAXone SOD 2 GM in D5W MINI-BAG PLUS 50 ML IV SCH (13:25)
[2018-12-02 16:00] VITALS: BP 118/62
--- NOTE | 2018-12-02 16:19 | IPNPDOC ---
Subjective Date Seen The patient was seen on 12/02/18. Subjective Chief Complaint/HPI Patient seen and examined the bedside. Reports that her diarrhea is slowing down somewhat, and also notes that her appetite is better today. Objective Physical Examination General Exam: Positive: Alert, Cooperative, No Acute Distress ENT Exam: Positive: Atraumatic, Mucous membr. moist/pink Neck Exam: Negative: JVD Chest Exam: Positive: Clear to auscultation, Normal air movement Heart Exam: Positive: Rate Normal, Normal S1, Normal S2 Abdomen Exam: Positive: Soft; Negative: Tenderness Extremity Exam: Negative: Tenderness, Swelling Assessment /Plan Plan/VTE VTE Prophylaxis Ordered?: Yes Plan Sepsis 2/[address] abdomen/pelvis unrevealing GI Panel notable for Salmonella, Enteroaggregative E. Coli, and Enteropathogenic E. Coli Patient continues to improve, and notes some improvement of appetite PT on board for functional optimization Infectious diseases on board--Cont IV Rocephin Preliminary blood cultures positive for gram-negative rods from 11/29 Repeat blood cultures from 11/30 still pending ID consulted--Cont IV Rocephin Lactic acidosis secondary to above s/p IV fluid hydration Non-anion gap metabolic acidosis secondary to diarrhea GI panel as noted above Hypomagnesemia secondary to diarrhea Magnesium supplementation ordered Acute Kidney Injury 2/2 Diarrhea, Volume Depletion, resolved Hold nephrotoxins s/p IV fluid hydration Hypertension Antihypertensives on hold secondary to borderline hypotension Diabetes mellitus Insulin sliding scale Dyslipidemia Continue statin DVT prophylaxis Heparin SC Dispo--pending clinical improvement, PT clearance. VS, I&O, 24H, Fishbone Vital Signs/I&O Vital Signs Date Time Temp Pulse Resp B/P (MAP) Pulse Ox O2 Delivery O2 Flow Rate FiO2 12/02/18 12:00 98.4 89 18 112/68 (83) 100 11/29/18 14:22 Room Air I&O- Last 24 Hours up to 6 AM0 12/02/18 06:00 Intake Total 2620 ml Output Total 0 ml Balance 2620 ml Laboratory Data 24H LABS Laboratory Tests 2 12/01/18 16:37: Bedside Glucose (Misc Panel) 92 12/01/18 19:49: Bedside Glucose (Misc Panel) 126H 12/02/18 04:58: Immature Granulocyte % (Auto) 0.6, White Blood Count 6.4, Red Blood Count 3.26L, Hemoglobin 10.1L, Hematocrit 30.1L, Mean Corpuscular Volume 92.3, Mean C orpuscular Hemoglobin 31.0, Mean Corpuscular Hemoglobin Concent 33.6, Red Cell Distribution Width 15.7H, Platelet Count 154, Neutrophils (%) (Auto) 56.9, Lymphocytes (%) (Auto) 29.4, Monocytes (%) (Auto) 11.1H, Eosinophils (%) (Auto) 1.7, Basophils (%) (Auto) 0.3, Neutrophils # (Auto) 3.6, Lymphocytes # (Auto) 1.9, Monocytes # (Auto) 0.7, Eosinophils # (Auto) 0.1, Basophils # (Auto) 0.0, Nucleated Red Blood Cells % (auto) 0.5H, Anion Gap 7L, Glomerular Filtration Rate > 60.0, Blood Urea Nitrogen 7, Creatinine 0.86, Sodium Level 144, Potassium Level 3.4L, Chloride Level 119H, Carbon Dioxide Level 18L, Calcium Level 7.3L, Magnesium Level 1.5L, C-Reactive Protein, Quantitative 10.30H 12/02/18 12:07: Bedside Glucose (Misc Panel) 76L 12/02/18 13:49: CBC/BMP Laboratory Tests 12/02/18 04:58 Red Blood Count 3.26 L, Mean Corpuscular Volume 92.3, Mean Corpuscular Hemoglobin 31.0, Mean Corpuscular Hemoglobin Concent 33.6, Red Cell Distribution Width 15.7 H, Neutrophils (%) (Auto) 56.9, Lymphocytes (%) (Auto) 29.4, Monocytes (%) (Auto) 11.1 H, Eosinophils (%) (Auto) 1.7, Basophils (%) (Auto) 0.3, Neutrophils # (Auto) 3.6, Lymphocytes # (Auto) 1.9, Monocytes # (Auto) 0.7, Eosinophils # (Auto) 0.1, Basophils # (Auto) 0.0, Calcium Level 7.3 L Microbiology Microbiology 11/30/18 Blood Culture - Preliminary, Resulted No Growth after 48 hours. All Specime... 11/30/18 Blood Culture - Preliminary, Resulted 11/29/18 Blood Culture - Final, Complete Salmonella Group 11/29/18 Blood Culture - Final, Complete Salmonella Group 11/30/18 Gastrointestinal Tract Panel (PCR) - Final, Resulted Salmonella Enteroaggregative E.coli Enteropathogenic E.coli 11/30/18 , Resulted Pending 11/29/18 Respiratory Virus Panel (PCR) (GLEN) - Final, Complete 11/30/18 Urine Culture - Final, Complete MERCY JOSE MD Dec 02, 2018 16:19
[2018-12-02 20:00] VITALS: BP 148/63
--- NOTE | 2018-12-02 20:37 | IPN ---
DATE: 12/02/2018 Mrs. Horn is doing much better today. No nausea or vomiting. She still had diarrhea about three times today, but it is more formed. She has had no fever today or chills. No joint pains. No rashes. She is starting to eat. The patient denies any hematuria but does complain of mild dysuria at the end of urination. LABORATORY DATA Temperature is 97.6, pulse 100, respiratory rate 18, blood pressure 118/62, O2 sat 100% on room air. Heart: Normal S1, S2 with no murmurs appreciated. Lungs: Clear. No wheezes, rales or rhonchi. Abdomen: Obese, soft, nontender. Back: No CVA or lumbosacral tenderness. Extremities: Trace edema. Bilateral total knee replacement with normal range of motion. LABORATORY DATA White count is 6.4, hemoglobin 10.1, hematocrit 30.1, platelets 154, 57% neutrophils, 30% lymphocytes, 11% monocytes. No eosinophilia. Sodium 144, potassium 3.4, chloride 119, bicarb 18, BUN 7, creatinine 0.86, which has improved from 1.5, CRP 10.3. Blood cultures are positive for Salmonella group. GI panel is positive for Salmonella and Enteroaggregative E-coli; susceptibilities are pending. HIV negative. Stool O and P were sent and are pending. IMPRESSION 1. Salmonella sepsis with gastroenteritis and doing much better on IV Rocephin. The patient is on day #3 of IV antibiotics. Since the patient remains afebrile she could be switched to oral Levaquin 500 mg daily to finish a total of 14-day course. 2. Non-insulin dependent diabetes with glucoses ranging between 81 and 131. 3. Hematuria. Could have been related to salmonella infection as well, secondary infection from bacteremia. Urinalysis on 11/30 had many red cells, many white cells. If hematuria persists, she may need cystoscopy. PLAN Switch to oral levofloxacin 500 mg daily tomorrow to finish a 14-day course of treatment. Case has been discussed with her two daughters. Anticipate discharge in next 24-48 hours. Public health will be calling them with possible food source of Salmonella infection. The patient his Peruvian speaking. Her daughter is Peruvian and Pashto-speaking. She reports that mom likes to cook food and she sometimes cooks for herself and she recently had acquired goods from her daughter who came from [facility] and had eaten dried fish and some cheeses. No other family members have been sick with diarrhea.
[2018-12-03] VITALS (7 sets, daily range): BP systolic 116–144; BP diastolic 62–80
[2018-12-03] MEDS: HEPARIN SOD (PORCINE) 5000 UNITS/ML VIAL SQ SCH ×3 (05:32→21:19)
[2018-12-03] MEDS: SLF 3 ML SYR IV SCH ×3 (05:32→21:19)
[2018-12-03] MEDS: HumaLOG INSULIN (NovoLOG) PER UNIT SC SCH ×3 (07:40→17:30)
[2018-12-03] MEDS: VITAMIN D 1,000 INTERNATIONAL UNITS TABLET PO SCH (08:04)
[2018-12-03] MEDS: GABAPENTIN 300 MG CAP PO SCH ×3 (08:05→21:19)
[2018-12-03] MEDS: ATORVASTATIN 20 MG TAB PO SCH (08:05)
[2018-12-03] MEDS: NYSTATIN 100,000 UNITS/GM TOPICAL PWD 15 GM TOP SCH (08:05)
[2018-12-03] MEDS: POTASSIUM CHLORIDE 10 MEQ SR TABLET PO SCH (08:05)
[2018-12-03] MEDS: LevoFLOXacin 500 MG TABLET PO SCH (10:31)
--- NOTE | 2018-12-03 13:23 | IPNPDOC ---
Subjective Date Seen The patient was seen on 12/03/18. Subjective Chief Complaint/HPI Patient seen and examined at the bedside. She reports that she has been tolerating a diet without any nausea or vomiting. States that her abdominal pain has also improved. In addition, the patient notes that her stools are becoming more formed and are less frequent. The patient is yet to clear physical therapy. Objective Physical Examination General Exam: Positive: Alert, Cooperative, No Acute Distress ENT Exam: Positive: Atraumatic, Mucous membr. moist/pink Neck Exam: Negative: JVD Chest Exam: Positive: Clear to auscultation, Normal air movement Heart Exam: Positive: Rate Normal, Normal S1, Normal S2 Abdomen Exam: Positive: Soft; Negative: Tenderness Extremity Exam: Negative: Tenderness, Swelling Assessment /Plan Plan/VTE VTE Prophylaxis Ordered?: Yes Plan Sepsis 2/[address] abdomen/pelvis unrevealing GI Panel notable for Salmonella, Enteroaggregative E. Coli, and Enteropathogenic E. Coli Patient continues to improve PT on board for functional optimization Infectious diseases on board--Abx switched to PO Levaquin for completion of 14 day course Preliminary blood cultures positive for gram-negative rods from 11/29 ID consulted--Abx changed to PO Levaquin Lactic acidosis secondary to above s/p IV fluid hydration Non-anion gap metabolic acidosis secondary to diarrhea GI panel as noted above Hypomagnesemia secondary to diarrhea Magnesium supplementation ordered Acute Kidney Injury 2/2 Diarrhea, Volume Depletion, resolved Hold nephrotoxins s/p IV fluid hydration Hypertension Antihypertensives on hold secondary to borderline hypotension Diabetes mellitus Insulin sliding scale Dyslipidemia Continue statin DVT prophylaxis Heparin SC Dispo--pending PT clearance. VS, I&O, 24H, [place]onadelaida Vital Signs/I&O Vital Signs Date Time Temp Pulse Resp B/P (MAP) Pulse Ox O2 Delivery O2 Flow Rate FiO2 12/03/18 12:00 97.5 96 20 132/62 (85) 100 11/29/18 14:22 Room Air I&O- Last 24 Hours up to 6 AM 12/03/18 05:59 Intake Total 1530 ml Output Total 250 ml Balance 1280 ml Laboratory Data 24H LABS Laboratory Tests 2 12/02/18 16:44: Bedside Glucose (Misc Panel) 131H 12/02/18 22:16: Bedside Glucose (Misc Panel) 171H 3/22/19 07:32: Bedside Glucose (Misc Panel) 80 12/03/18 11:46: Bedside Glucose (Misc Panel) 83 Microbiology Microbiology 11/30/18 Blood Culture - Preliminary, Resulted 11/30/18 Blood Culture - Final, Complete Salmonella Group 11/29/18 Blood Culture - Final, Complete Salmonella Group 11/29/18 Blood Culture - Final, Complete Salmonella Group 11/30/18 Gastrointestinal Tract Panel (PCR) - Final, Resulted Salmonella Enteroaggregative E.coli Enteropathogenic E.coli 11/30/18 , Resulted Pending 11/29/18 Respiratory Virus Panel (PCR) (GLEN) - Final, Complete 11/30/18 Urine Culture - Final, Complete MERCY JOSE MD Dec 03, 2018 13:23
--- NOTE | 2018-12-03 23:23 | IPN ---
DATE: 12/03/2018 Ms. Horn is doing very well. She has no complaints today. No nausea, vomiting or diarrhea. She states her stools are soft, but she had a large bowel movement. No abdominal pain and no fever, chills or hematuria. Her appetite is fair. LABORATORY DATA: White count of 6.4, hemoglobin 10.1, hematocrit 30.1, platelets 154. Sodium 144, potassium 3.4, chloride 119, bicarbonate 18, BUN 7, creatinine 0.86, glucose 82, calcium 7.3, magnesium 1.3, CRP 10.3. On physical exam, temperature is 97.3, pulse 103, respirations 18, blood pressure 140/64, oxygen saturation 98% on room air. Heart: Normal S1-S2. No murmurs. Lungs are clear. No wheezes, rales or rhonchi. Abdomen: Obese, soft, nontender. Extremities: Trace edema. No calf tenderness. IMPRESSION: 1. Salmonella gastroenteritis with sepsis and bacteremia doing much better. CT abdomen and pelvis negative. The patient is currently on by mouth Levaquin day 1. She had taken 3 days of IV antibiotics as well. 2. Hematuria. Most likely related to Salmonella, as well, but urine cultures were negative. 3. Non-insulin dependent diabetes, control. 4. Difficulty with mobility and mostly stairs. The patient has 14 steps to take at home and therefore is not able to be discharged until she is able to do steps in the hospital. PLAN Encourage ambulation. Continue by mouth Levaquin for a total of 10 days. MTDD
[2018-12-04] MEDS: HEPARIN SOD (PORCINE) 5000 UNITS/ML VIAL SQ SCH ×3 (05:58→21:13)
[2018-12-04] MEDS: LevoFLOXacin 500 MG TABLET PO SCH (05:59)
[2018-12-04] MEDS: SLF 3 ML SYR IV SCH ×3 (05:59→21:14)
[2018-12-04 06:11] VITALS: BP 123/66
[2018-12-04 07:02] LABS: BASO % 0.8 % (0.0-1.0); EOS # 0.1 10^3/uL (0.0-0.50); EOS % 3.1 % (0.0-3.0); HEMATOCRIT 28.3 % (36.0-47.0); HEMOGLOBIN 9.4 g/dl (12.0-15.5); LYMPH # 1.5 10^3/uL (1.5-4.5); LYMPH % 41.1 % (24.0-44.0); MEAN CORPUSCULAR HEMOGLOBIN 30.5 pg (27.0-33.0); MEAN CORPUSCULAR HGB CONC 33.2 g/dl (32.0-36.5); MEAN CORPUSCULAR VOLUME 91.9 fl (80.0-96.0); MONO # 0.6 10^3/uL (0.0-0.8); MONO % 16.2 % (0.0-5.0); NEUTROPHILS # 1.4 10^3/uL (1.8-7.7); NEUTROPHILS % 38.2 % (36.0-66.0); PLATELET COUNT, AUTOMATED 213 10^3/uL (150-450); RED BLOOD COUNT 3.08 10^6/uL (4.00-5.40); WHITE BLOOD COUNT 3.6 10^3/uL (4.0-10.0)
[2018-12-04 07:34] LABS: BLOOD UREA NITROGEN 3 MG/DL (7-18); C REACTIVE PROTEIN QUANTITATIV 2.41 MG/DL (0.00-0.30); CALCIUM LEVEL 7.5 MG/DL (8.8-10.2); CARBON DIOXIDE LEVEL 21 MEQ/L (21-32); CHLORIDE LEVEL 116 MEQ/L (98-107); CREATININE FOR GFR 0.88 MG/DL (0.55-1.30); GLOMERULAR FILTRATION RATE > 60.0 (>45); GLUCOSE, FASTING 103 MG/DL (70-100); MAGNESIUM LEVEL 1.6 MG/DL (1.8-2.4); POTASSIUM SERUM 3.2 MEQ/L (3.5-5.1); SODIUM LEVEL 146 MEQ/L (136-145)
[2018-12-04] MEDS: VITAMIN D 1,000 INTERNATIONAL UNITS TABLET PO SCH (09:34)
[2018-12-04] MEDS: HumaLOG INSULIN (NovoLOG) PER UNIT SC SCH ×3 (09:34→17:30)
[2018-12-04] MEDS: MAGNESIUM OXIDE 400 MG TAB (MAG-OX) PO SCH ×2 (09:34→21:13)
[2018-12-04] MEDS: ATORVASTATIN 20 MG TAB PO SCH (09:34)
[2018-12-04] MEDS: POTASSIUM CHLORIDE 10 MEQ SR TABLET PO SCH (09:34)
[2018-12-04] MEDS: NYSTATIN 100,000 UNITS/GM TOPICAL PWD 15 GM TOP SCH (09:35)
[2018-12-04] MEDS: GABAPENTIN 300 MG CAP PO SCH ×3 (09:35→21:13)
[2018-12-04] MEDS ORDERED: POTASSIUM CHLORIDE 10 MEQ SR TABLET PO ONE (10:00)
[2018-12-04 14:00] VITALS: BP 132/65
--- NOTE | 2018-12-04 16:08 | IPNPDOC ---
Subjective Date Seen The patient was seen on 12/04/18. Subjective Chief Complaint/HPI Patient seen and examined at the bedside. Reports that her diarrhea has resolved and denies any more complaints of abdominal pain or nausea/vomiting. She continues to need further functional optimization with physical therapy. Objective Physical Examination General Exam: Positive: Alert, Cooperative, No Acute Distress ENT Exam: Positive: Atraumatic, Mucous membr. moist/pink Neck Exam: Negative: JVD Chest Exam: Positive: Clear to auscultation, Normal air movement Heart Exam: Positive: Rate Normal, Normal S1, Normal S2 Abdomen Exam: Positive: Soft; Negative: Tenderness Extremity Exam: Negative: Tenderness, Swelling Assessment /Plan Plan/VTE VTE Prophylaxis Ordered?: Yes Plan Sepsis 2/[address] abdomen/pelvis unrevealing GI Panel notable for Salmonella, Enteroaggregative E. Coli, and Enteropathogenic E. Coli Patient continues to improve PT on board for functional optimization Infectious diseases on board--Abx switched to PO Levaquin for completion of 14 day course Preliminary blood cultures positive for gram-negative rods from 11/29 ID consulted--Abx changed to PO Levaquin Lactic acidosis secondary to above s/p IV fluid hydration Non-anion gap metabolic acidosis secondary to diarrhea GI panel as noted above Hypomagnesemia secondary to diarrhea Magnesium supplementation ordered Acute Kidney Injury 2/2 Diarrhea, Volume Depletion, resolved Hold nephrotoxins s/p IV fluid hydration Hypertension Antihypertensives on hold secondary to borderline hypotension Diabetes mellitus Insulin sliding scale Dyslipidemia Continue statin DVT prophylaxis Heparin SC Dispo--pending PT clearance. VS, I&O, 24H, Fishbone Vital Signs/I&O Vital Signs Date Time Temp Pulse Resp B/P (MAP) Pulse Ox O2 Delivery O2 Flow Rate FiO2 12/04/18 14:00 98.4 95 16 132/65 (87) 99 11/29/18 14:22 Room Air I&O- Last 24 Hours up to 6 AM 12/04/18 06:00 Intake Total 660 ml Output Total 200 ml Balance 460 ml Laboratory Data 24H LABS Laboratory Tests 2 12/03/18 16:28: Bedside Glucose (Misc Panel) 98 12/04/18 06:45: Immature Granulocyte % (Auto) 0.6, White Blood Count 3.6L, Red Blood Count 3.08L, Hemoglobin 9.4L, Hematocrit 28.3L, Mean Corpuscular Volume 91.9, Mean Corpuscular Hemoglobin 30.5, Mean Corpuscular Hemoglobin Concent 33.2, Red Cell Distribution Width 15.6H, Platelet Count 213, Neutrophils (%) (Auto) 38.2, Lymphocytes (%) (Auto) 41.1, Monocytes (%) (Auto) 16.2H, Eosinophils (%) (Auto) 3.1H, Basophils (%) (Auto) 0.8, Neutrophils # (Auto) 1.4L, Lymphocytes # (Auto) 1.5, Monocytes # (Auto) 0.6, Eosinophils # (Auto) 0.1, Basophils # (Auto) 0.0, Nucleated Red Blood Cells % (auto) 0.8H, Anion Gap 9, Glomerular Filtration Rate > 60.0, Blood Urea Nitrogen 3#L, Creatinine 0.88, Sodium Level 146H, Potassium Level 3.2L, Chloride Level 116H, Carbon Dioxide Level 21, Calcium Level 7.5L, Magnesium Level 1.6L, C-Reactive Protein, Quantitative 2.41H 12/04/18 11:44: Bedside Glucose (Misc Panel) 62L 12/04/18 12:04: Bedside Glucose (Misc Panel) 65L 12/04/18 13:03: Bedside Glucose (Misc Panel) 92 CBC/BMP Laboratory Tests 12/04/18 06:45 Red Blood Count 3.08 L, Mean Corpuscular Volume 91.9, Mean Corpuscular Hemoglobin 30.5, Mean Corpuscular Hemoglobin Concent 33.2, Red Cell Distribution Width 15.6 H, Neutrophils (%) (Auto) 38.2, Lymphocytes (%) (Auto) 41.1, Monocytes (%) (Auto) 16.2 H, Eosinophils (%) (Auto) 3.1 H, Basophils (%) (Auto) 0.8, Neutrophils # (Auto) 1.4 L, Lymphocytes # (Auto) 1.5, Monocytes # (Auto) 0.6, Eosinophils # (Auto) 0.1, Basophils # (Auto) 0.0, Calcium Level 7.5 L Microbiology Microbiology 11/30/18 Blood Culture - Final, Complete Salmonella Group 11/30/18 Blood Culture - Final, Complete Salmonella Group 11/29/18 Blood Culture - Final, Complete Salmonella Group 11/29/18 Blood Culture - Final, Complete Salmonella Group 11/30/18 Gastrointestinal Tract Panel (PCR) - Final, Resulted Salmonella Enteroaggregative E.coli Enteropathogenic E.coli 11/30/18 , Resulted Pending 11/29/18 Respiratory Virus Panel (PCR) (GLEN) - Final, Complete 11/30/18 Urine Culture - Final, Complete MERCY JOSE MD Dec 04, 2018 16:08
[2018-12-04 20:00] VITALS: BP 132/62
[2018-12-05 06:00] VITALS: BP 143/66
[2018-12-05] MEDS: SLF 3 ML SYR IV SCH ×2 (06:01→14:00)
[2018-12-05] MEDS: HEPARIN SOD (PORCINE) 5000 UNITS/ML VIAL SQ SCH ×2 (06:02→14:00)
[2018-12-05] MEDS: LevoFLOXacin 500 MG TABLET PO SCH (06:02)
[2018-12-05 06:30] LABS: HEMATOCRIT 25.2 % (36.0-47.0); HEMOGLOBIN 8.8 g/dl (12.0-15.5); MEAN CORPUSCULAR HEMOGLOBIN 30.1 pg (27.0-33.0); MEAN CORPUSCULAR HGB CONC 34.9 g/dl (32.0-36.5); MEAN CORPUSCULAR VOLUME 86.3 fl (80.0-96.0); PLATELET COUNT, AUTOMATED 260 10^3/uL (150-450); RED BLOOD COUNT 2.92 10^6/uL (4.00-5.40); WHITE BLOOD COUNT 4.6 10^3/uL (4.0-10.0)
[2018-12-05 06:56] LABS: BLOOD UREA NITROGEN 3 MG/DL (7-18); C REACTIVE PROTEIN QUANTITATIV 1.68 MG/DL (0.00-0.30); CALCIUM LEVEL 8.2 MG/DL (8.8-10.2); CARBON DIOXIDE LEVEL 23 MEQ/L (21-32); CHLORIDE LEVEL 113 MEQ/L (98-107); CREATININE FOR GFR 0.84 MG/DL (0.55-1.30); GLOMERULAR FILTRATION RATE > 60.0 (>45); GLUCOSE, FASTING 93 MG/DL (70-100); MAGNESIUM LEVEL 1.9 MG/DL (1.8-2.4); POTASSIUM SERUM 3.6 MEQ/L (3.5-5.1); SODIUM LEVEL 144 MEQ/L (136-145)
[2018-12-05 07:06] LABS: ATYPICAL LYMPH 8 % (0-5); EOSINOPHILS 5 % (0-5); LYMPHOCYTES 54 % (16-52); MONOCYTES 6 % (0-8); NEUTROPHILS 27 % (35-75); PLATELET ESTIMATE NORMAL (NORMAL)
[2018-12-05 07:07] LABS: ANISOCYTOSIS 1+; POIKILOCYTOSIS 1+; POLYCHROMASIA 1+
[2018-12-05] MEDS: HumaLOG INSULIN (NovoLOG) PER UNIT SC SCH (08:10)
[2018-12-05] MEDS: ATORVASTATIN 20 MG TAB PO SCH (09:18)
[2018-12-05] MEDS: MAGNESIUM OXIDE 400 MG TAB (MAG-OX) PO SCH (09:18)
[2018-12-05] MEDS: VITAMIN D 1,000 INTERNATIONAL UNITS TABLET PO SCH (09:18)
[2018-12-05] MEDS: POTASSIUM CHLORIDE 10 MEQ SR TABLET PO SCH (09:18)
[2018-12-05] MEDS: NYSTATIN 100,000 UNITS/GM TOPICAL PWD 15 GM TOP SCH (09:19)
[2018-12-05] MEDS: GABAPENTIN 300 MG CAP PO SCH (09:19)
[2018-12-05 14:00] VITALS: BP 132/71
[2018-12-05] MEDS ORDERED: LEVA1TAB2 PO (14:21)
--- NOTE | 2018-12-05 19:03 | DS.PDOC ---
Discharge Summary General Date of Admission Nov 30, 2018 at 17:43 Date of Discharge 12/05/18 Specialist/Consultants Involve Dr. Easley of ID Discharge Summary PROCEDURES PERFORMED DURING STAY: None. ADMITTING/DISCHARGE DIAGNOSES: Sepsis 2/2 Salmonella Enteritis Salmonella bacteremia Lactic acidosis Non-anion gap metabolic acidosis secondary to diarrhea Acute kidney injury Hypertension Diabetes mellitus Dyslipidemia COMPLICATIONS/CHIEF COMPLAINT: Viral Gastroenteritis. HISTORY OF PRESENT ILLNESS: . 63-year-old female with past medical history of dyslipidemia, diabetes mellitus, and hypertension presents to the ER with a chief complaint of intractable nausea, vomiting, and diarrhea for the past 3 days. The patient also noticed subjective fevers, aches, and chills. The patient denied any sick contacts, or recent travel. However, it was noted that the patient does cook food for herself at times [place]. The patient was admitted to the hospitalist service for further evaluation and management. During hospitalization, the patient's GI panel was found to be positive for Salmonella, Enteroaggregative E. Coli, and Enteropathogenic E. Coli. In addition, the patient's blood cultures were also noted to be positive for salmonella group. The patient was empirically started on meropenem, Infectious diseases was consulted, and the patient was transitioned over to by mouth Levaquin. At this time, the patient states that she is feeling much better. She no longer has any nausea, vomiting, abdominal pain, or any diarrhea. She has been tolerating a diet without any acute complaints. She has remained afebrile for the past 4 days, and her CRP markers have trended downward. She has been seen and cleared by physical therapy. I have discussed the case with infectious diseases, and they have recommended discharge with by mouth Levaquin to complete a total of 14 days of antibiotic therapy. The patient's Levaquin has been sent to her pharmacy. I've advised the patient to follow-up with her primary care physician within 7 days. Lastly, the patient is advised to return to the ER for any acute emergencies. DISCHARGE MEDICATIONS: Please see below. ALLERGIES: Please see below. PHYSICAL EXAMINATION ON DISCHARGE: VITAL SIGNS: Please see below. General Exam: Positive: Alert, Cooperative, No Acute Distress ENT Exam: Positive: Atraumatic, Mucous membr. moist/pink Neck Exam: Negative: JVD Chest Exam: Positive: Clear to auscultation, Normal air movement Heart Exam: Positive: Rate Normal, Normal S1, Normal S2 Abdomen Exam: Positive: Soft; Negative: Tenderness Extremity Exam: Negative: Tenderness, Swelling LABORATORY DATA: Please see below. IMAGING: ABDOMEN, FLAT UPRIGHT PA CHEST, FOUR VIEWS: HISTORY: Vomiting. Air is present in the small and large intestine. Several air fluid levels are present. There are no dilated loops of intestine. There is no new peritoneum. The lungs are clear. The cardiac silhouette is enlarged. IMPRESSION: Nonspecific bowel gas pattern. CT abdomen and pelvis without IV or oral contrast: History: Abdomen pain. No comparison CT study. Comparison is made with today's abdomen radiographs. CT findings: Preliminary digital medical receptionist radiographs demonstrate a nonspecific air and fluid filled loops of small and large bowel. The lung bases show linear fibrosis versus discoid atelectasis in the left lower lobe. No pleural effusion is seen. No upper abdominal ascites is seen. The liver and the spleen are normal in size homogeneous in texture. No abnormalities noted in the gallbladder. Pancreas is unremarkable as well. No adrenal lesion is observed on either side. There is no evidence of intrarenal calculus or hydronephrosis. No retroperitoneal mass or adenopathy is observed. The appendix is not confidently identified but there is no evidence of pericecal or cecal inflammation to suggest appendicitis. The ileocecal valve is observed and is unremarkable. Small and large intestinal bowel loops show no evidence of obstructive lesion. No uterine or ovarian abnormality is observed. Urinary bladder is unremarkable. There is fairly heavy vascular calcification. There is a small umbilical hernia transmitting abdominal fat. No other abdominal wall defect is seen. Bone window settings show no acute bony abnormality. Impression: Small umbilical hernia transmitting abdominal fat. Otherwise no acute abdominal or pelvic abnormality. Clinical: Weakness. Technique: AP and cross-table lateral views of the chest. Comparison: 03/05/2017. Findings: Examination is limited by technique, underpenetration, and poor inspiratory effort. Chronic changes are suggested. Subtle right lower lobe atelectasis cannot be excluded. No obvious effusion. No pneumothorax. Skeletal structures intact. Impression: Limited examination. Cannot exclude right lower lobe infiltrate/atelectasis. PROGNOSIS: Fair ACTIVITY: As tolerated. DIET: Carb consistent, 2 gm low-sodium diet DISCHARGE PLAN: DISPOSITION: 01 Home, Self-Care. DISCHARGE INSTRUCTIONS: Take Levaquin to complete a total of 14 days of antibiotic therapy as prescribed. I've advised the patient to follow-up with her primary care physician within 7 days. Lastly, the patient is advised to return to the ER for any acute emergencies. DISCHARGE CONDITION: Stable. TIME SPENT ON DISCHARGE: Greater than 30 minutes. Vital Signs/I&Os Vital Signs Date Time Temp Pulse Resp B/P (MAP) Pulse Ox O2 Delivery O2 Flow Rate FiO2 12/05/18 14:00 97.8 104 18 132/71 (91) 99 11/29/18 14:22 Room Air I&O- Last 24 Hours up to 6 AM 12/05/18 06:00 Intake Total 1530 ml Balance 1530 ml Laboratory Data Labs 24H Laboratory Tests 2 12/04/18 20:14: Bedside Glucose (Misc Panel) 154H 12/05/18 06:19: Nucleated Red Blood Cells % (auto) 0.9H, Neutrophils 27L, Lymphocytes (Manual) 54H, Monocytes (Manual) 6, Eosinophils (Manual) 5, Atypical Lymphocytes 8H, Platelet Estimate NORMAL, Polychromasia 1+, Poikilocytosis 1+, Anisocytosis 1+, Anion Gap 8, Glomerular Filtration Rate > 60.0, Blood Urea Nitrogen 3L, Creatinine 0.84, Sodium Level 144, Potassium Level 3.6, Chloride Level 113H, Carbon Dioxide Level 23, Calcium Level 8.2L, Magnesium Level 1.9, C-Reactive Protein, Quantitative 1.68H 12/05/18 11:44: Bedside Glucose (Misc Panel) 93 CBC/BMP Laboratory Tests 12/05/18 06:19 Red Blood Count 2.92 L, Mean Corpuscular Volume 86.3, Mean Corpuscular Hemoglobin 30.1, Mean Corpuscular Hemoglobin Concent 34.9, Red Cell Distribution Width 15.0 H, Calcium Level 8.2 L FSBS Laboratory Tests Test 12/04/18 20:14 12/05/18 11:44 Range/Units Bedside Glucose (Misc Panel) 154 93 80-115 MG/DL Microbiology Microbiology 11/30/18 Blood Culture - Final, Complete Salmonella Group 11/30/18 Blood Culture - Final, Complete Salmonella Group 11/29/18 Blood Culture - Final, Complete Salmonella Group 11/29/18 Blood Culture - Final, Complete Salmonella Group 11/30/18 Gastrointestinal Tract Panel (PCR) - Final, Resulted Salmonella Enteroaggregative E.coli Enteropathogenic E.coli 11/30/18 , Resulted Pending 11/29/18 Respiratory Virus Panel (PCR) (GLEN) - Final, Complete 11/30/18 Urine Culture - Final, Complete Discharge Medications Scheduled (Magnesium Oxide) 400 Mg Cap, 400 MG PO DAILY, (Reported) (Tab-A-Saeed) 1 Tab Tab, 1 TAB PO DAILY, (Reported) Atorvastatin Calcium (Atorvastatin Calcium) 80 Mg Tab, 80 MG PO DAILY, (Reported) Chlorthalidone (Chlorthalidone) 25 Mg Tab, 25 MG PO DAILY, (Reported) Cholecalciferol (Vitamin D3) 2,000 Unit Tab, 2,000 UNIT PO DAILY, (Reported) Gabapentin (Gabapentin) 300 Mg Cap, 300 MG PO TID, (Reported) Levofloxacin Hemihydrate (Levaquin) 500 Mg Tab, 1 TAB PO DAILY Lisinopril (Lisinopril) 40 Mg Tab, 20 MG PO BID, (Reported) Metformin Hydrochloride (Metformin HCl) 500 Mg Tab, 500 MG PO BID, (Reported) Potassium Chloride (Potassium Chloride ER) 20 Meq Tab, 20 MEQ PO DAILY, (Reported) Spironolactone (Spironolactone) 25 Mg Tab, 12.5 MG PO DAILY, (Reported) Scheduled PRN Acetaminophen (Acetaminophen ER) 650 Mg Tab, 650 MG PO TID PRN for PAIN, (Reported) Polyethylene Glycol (Systane 0.4-0.3 %) 15 Ml Kristin, 1 DROP OU QID PRN for DRY EYES, (Reported) Allergies Coded Allergies: Penicillins (Unverified Allergy, Intermediate, RASH,ITCHING, 09/18/16) MERCY JOSE MD Dec 05, 2018 19:03
== END 2018-12-05 16:11 | disposition home or self-care (01) | DRG 720 ==
LOC: M ED 14:21 → M ED INP 18:39 → M MS5PR 11-30 01:05 → M PCU 11-30 16:24 → OBSVTOIN 11-30 17:43 → M MS4PR 12-03 18:26
PROVIDERS: ADMIT Internal Medicine; ATTEND Internal Medicine
DX: A02.1 Salmonella sepsis (principal); N17.9 Acute kidney failure, unspecified; E87.2 Acidosis; E11.40 Type 2 diabetes mellitus with diabetic neuropathy, unspecified; E83.42 Hypomagnesemia; E87.6 Hypokalemia; R31.9 Hematuria, unspecified; A02.0 Salmonella enteritis; I10 Essential (primary) hypertension; E78.5 Hyperlipidemia, unspecified; Z88.0 Allergy status to penicillin; Z79.899 Other long term (current) drug therapy; E66.9 Obesity, unspecified; Z96.651 Presence of right artificial knee joint; Z96.652 Presence of left artificial knee joint; K59.00 Constipation, unspecified; M19.90 Unspecified osteoarthritis, unspecified site

== ENCOUNTER → 2018-12-20 | Outpatient (REF) | payer OTHER ==
[~2018-12-20] MED LIST changes: +ACE65ERTAB PO; +LEVA1TAB2 PO; +LISI40TA PO; +METF-877 PO; -NAPR-50 PO; +NAPR-837 PO; +POTA1TAB14 PO; +SPIR-10 PO; +SYST1SOL OU; +TAB-TAB PO; +VITA20008 PO
[2018-12-20 11:07] LABS: ALBUMIN 3.3 GM/DL (3.2-5.2); ALT/SGPT 24 U/L (12-78); BILIRUBIN,TOTAL 0.6 MG/DL (0.2-1.0); BLOOD UREA NITROGEN 25 MG/DL (7-18); CALCIUM LEVEL 9.9 MG/DL (8.8-10.2); CARBON DIOXIDE LEVEL 25 MEQ/L (21-32); CHLORIDE LEVEL 110 MEQ/L (98-107); GLOMERULAR FILTRATION RATE > 60.0 (>45); GLUCOSE, FASTING 81 MG/DL (70-100); NT-PRO BNP 113 PG/ML (<125); POTASSIUM SERUM 4.7 MEQ/L (3.5-5.1); SODIUM LEVEL 140 MEQ/L (136-145)
== END ==
LOC: M LABDRAW1 10:35
PROVIDERS: ATTEND Obstetrics & Gynecology
DX: R06.09 Other forms of dyspnea (principal); M79.89 Other specified soft tissue disorders

== ENCOUNTER → 2019-02-26 | Outpatient (CLI) | payer OTHER ==
[2019-02-26 20:02] LABS: HEMOGLOBIN A1c 6.6 %
== END ==
LOC: M WUC 10:51
PROVIDERS: ATTEND Obstetrics & Gynecology
DX: E11.42 Type 2 diabetes mellitus with diabetic polyneuropathy (principal)

== ENCOUNTER → 2019-03-29 | Outpatient (CLI) | payer OTHER ==
[2019-03-29 20:24] LABS: CREATININE FOR GFR 1.49 MG/DL (0.55-1.30); GLOMERULAR FILTRATION RATE 45.4 (>45)
== END ==
LOC: M WUC 18:34
PROVIDERS: ATTEND Physician Assistant Surgical
DX: Z01.812 Encounter for preprocedural laboratory examination (principal)

== ENCOUNTER → 2019-04-20 | Outpatient (CLI) | payer OTHER ==
[~2019-04-20] MED LIST changes: +D3 S20002 PO; +MAGN400T3 PO; +NORV5TAB PO
--- NOTE | 2019-04-20 13:35 | REP ---
MR LUMBAR SPINE WITHOUT CONTRAST: HISTORY: Spinal stenosis. Decreased signal intensity on T2-weighted images is present in the lumbar intervertebral discs. The discs are decreased in height. These findings are consistent with disc degeneration. A diffuse disc bulge is present at the L1-2 level. There is hypertrophy of the ligamenta flava and posterior articulating facets. These findings produce minimal central canal stenosis. The L1 nerves exit the neural foramina without compression. A diffuse disc bulge is present at the L2-3 level. There is hypertrophy of the ligamenta flava and posterior articulating facets. These findings produce moderate central canal stenosis. There is compression of the L2 nerves in the neural foramina. A diffuse disc bulge is present at the L3-4 level. There is hypertrophy of the ligamenta flava and posterior articulating facets. These findings produce moderate central canal stenosis. There is compression of the L3 nerves in the neural foramina. A diffuse disc bulge and moderate sized central disc extrusion are present at the L4-5 level. There is hypertrophy of the ligamenta flava and posterior articulating facets. These findings produce severe central canal stenosis. There is compression of the L4 nerves in the neural foramina. A diffuse disc bulge is present at the L5-S1 level. There is hypertrophy of the ligamenta flava and posterior articulating facets. These findings produce minimal central canal stenosis. There is compression of the L5 nerves in the neural foramina. The conus medullaris is normal in appearance terminating at the level of the T12-L1 intervertebral disc. Normal signal intensity is present in the lumbar vertebral bodies. There is an old compression fracture of the L3 vertebral body with minimal height loss. IMPRESSION: 1. Minimal central canal stenosis at the L1-2 and L5-S1 levels secondary to disc bulge, ligamentous, and facet hypertrophy. 2. Moderate central canal stenosis at the L2-3 and L3-4 levels secondary to disc bulge, ligamentous, and facet hypertrophy. 3. Severe central canal stenosis at the L4-5 level secondary to disc bulge, disc extrusion, ligamentous, and facet hypertrophy. Electronically Signed by Benitez Vasquez MD 04/20/2019 05:58 P
--- NOTE | 2019-04-20 19:10 | REP ---
MR CERVICAL SPINE WITHOUT CONTRAST: HISTORY: Spinal stenosis. A disc bulge with associated osteophyte formation is present at the C3-4 level. There are 2 mm of anterior subluxation of C3 on 4. There is moderate effacement of the thecal sac without spinal cord compression. Bilateral uncinate process hypertrophy is present. This produces mild narrowing of the C3 neural foramina. A disc bulge and mild sized left paracentral disc protrusion with associated osteophyte formation are present at the C4-5 level. There is moderate spinal cord compression. Bilateral uncinate process hypertrophy is present. This produces moderate narrowing of the C4 neural foramina. A disc bulge and mild sized central disc extrusion with associated osteophyte formation are present at the C5-6 level. There is moderate spinal cord compression. Bilateral uncinate process hypertrophy is present. This produces moderate narrowing of the C4 neural foramina. A disc bulge and small left paracentral disc protrusion are present at the C6-7 level. There is mild effacement of the thecal sac without spinal cord compression. Uncinate process hypertrophy is present on the right. This produces minimal narrowing of the C6 neural foramen. The left C6 neural foramen is patent. A disc bulge with associated osteophyte formation is present at the C7-T1 level. There is moderate effacement of the thecal sac without spinal cord compression. Bilateral uncinate process hypertrophy is present. This produces mild narrowing of the C7 neural foramina. There is no other disc bulge or herniation. The remaining neural foramina are patent. Small focal areas of increased signal intensity on T2 weighted images are present in the spinal cord at the C5 and C6 levels. This represents myelomalacia. The C3-4 through C7-T1 intervertebral discs are decreased in height consistent with disc degeneration. Normal signal intensity is present in the cervical vertebral bodies. IMPRESSION: There is cervical spondylosis at the C3-4 through C7-T1 levels most significant at the C4-5 and C5-6 levels where there is moderate spinal cord compression. Electronically Signed by Benitez Vasquez MD 04/21/2019 08:18 A
== END ==
LOC: M RAD 10:20
PROVIDERS: ATTEND Physician Assistant Surgical
DX: M48.062 Spinal stenosis, lumbar region with neurogenic claudication (principal); M47.892 Other spondylosis, cervical region; M47.893 Other spondylosis, cervicothoracic region

== ENCOUNTER → 2019-04-22 | Outpatient (CLI) | payer OTHER ==
--- NOTE | 2019-04-22 09:39 | REPMRS ---
Patient History The patient states she has not had a clinical breast exam in over a year. Patient is postmenopausal. No known family history of cancer. No Hormone Replacement Therapy 3D TOMOSYNTHESIS WAS PERFORMED. [facility] lifetime risk for breast cancer is 4.7%. Digital Woman Screen Mammo: April 22, 2019 - Exam #: [id number] Bilateral CC and MLO view(s) were taken. Technologist: Annmarie Hansen, Technologist Prior study comparison: October 13, 2017, digital woman screen mammo performed at [facility]. FINDINGS: There are scattered fibroglandular densities. There has been no change in the appearance of the mammogram from the prior studies. There is a mild amount of residual fibroglandular tissue which is fairly symmetric. There is no interval development of dominant mass, architectural distortion, or clustered microcalcification suggestive of malignancy. Assessment: BI-RADS/ACR category 1 mammogram. Negative Mammogram. Recommendation Routine screening mammogram in 1 year (for women over age 40). This mammogram was interpreted with the aid of an FDA-approved computer-aided dectection system. Electronically Signed By: William Jaffe MD 04/22/19 0946
== END ==
LOC: M WHC 08:04
PROVIDERS: ATTEND Obstetrics & Gynecology
DX: Z12.31 Encounter for screening mammogram for malignant neoplasm of breast (principal); Z78.0 Asymptomatic menopausal state

== ENCOUNTER 2019-06-10 09:10 | Emergency (ER) | payer OTHER ==
[~2019-06-10] VITALS: Ht 149.9 cm; Wt 80.0 kg
[~2019-06-10 09:10] MED LIST changes: -D3 S20002 PO; -MAGN400T3 PO; -NORV5TAB PO
--- NOTE | 2019-06-10 10:20 | REP ---
CT brain without contrast: History: Vision changes. Elevated blood pressure. No comparison study. Findings: Preliminary digital water gas operator radiograph is unremarkable. The bony calvarium is intact on bone window setting images. The visualized sinuses are clear except for the right sphenoid sinus which shows moderate mucosal thickening and a small quantity of fluid. No intraorbital abnormalities appreciated. On soft tissue window settings there is mild generalized atrophy. There is concordant ventricular enlargement. There is no evidence of intracranial hemorrhage. No mass, infarct, extra-axial fluid collection or midline shift is seen. There are mild small vessel changes. Impression: Mild generalized volume loss. Small vessel changes. No acute intracranial abnormality. Mucosal thickening and fluid in the right sphenoid sinus. Electronically Signed by Woody Buchanan MD 06/10/2019 10:55 A
--- NOTE | 2019-06-10 10:51 | REP ---
PORTABLE CHEST X-RAY: Sitting AP view. HISTORY: Altered mental status. Comparison chest x-ray is from November 30, 2018. FINDINGS: EKG monitoring electrodes overlie the chest. The heart is enlarged unchanged. No infiltrate is appreciated. There is no evidence of pleural effusion. Right hemidiaphragm is slightly elevated unchanged. IMPRESSION: Cardiomegaly. Otherwise no acute disease. Electronically Signed by Woody Buchanan MD 06/10/2019 10:56 A
[2019-06-10 11:03] LABS: BASO % 0.3 % (0.0-1.0); EOS # 0.1 10^3/uL (0.0-0.5); EOS % 0.8 % (0.0-3.0); HEMATOCRIT 32.8 % (36.0-47.0); HEMOGLOBIN 10.5 g/dl (12.0-15.5); LYMPH # 1.5 10^3/uL (1.5-5.0); LYMPH % 20.2 % (24.0-44.0); MEAN CORPUSCULAR VOLUME 96.8 fl (80.0-96.0); MONO # 0.8 10^3/uL (0.0-0.8); MONO % 10.6 % (0.0-5.0); NEUTROPHILS # 5.1 10^3/uL (1.5-8.5); NEUTROPHILS % 67.8 % (36.0-66.0); PLATELET COUNT, AUTOMATED 219 10^3/uL (150-450); RED BLOOD COUNT 3.39 10^6/uL (4.00-5.40); WHITE BLOOD COUNT 7.5 10^3/uL (4.0-10.0)
[2019-06-10 11:33] LABS: ALBUMIN 3.3 GM/DL (3.2-5.2); ALT/SGPT 26 U/L (12-78); BILIRUBIN,DIRECT 0.2 MG/DL (0.0-0.2); BILIRUBIN,TOTAL 0.7 MG/DL (0.2-1.0); BLOOD UREA NITROGEN 24 MG/DL (7-18); CALCIUM LEVEL 9.8 MG/DL (8.8-10.2); CARBON DIOXIDE LEVEL 27 MEQ/L (21-32); CHLORIDE LEVEL 107 MEQ/L (98-107); CK-MB VALUE MASS < 1.0 NG/ML (<3.6); CPK CREATINE PHOSPHOKINASE 53 U/L (26-192); CREATININE FOR GFR 1.07 MG/DL (0.55-1.30); GLOMERULAR FILTRATION RATE > 60.0 (>45); GLUCOSE, FASTING 67 MG/DL (70-100); MB/CK RELATIVE INDEX 1.89 (< OR =4); POTASSIUM SERUM 3.9 MEQ/L (3.5-5.1); SODIUM LEVEL 143 MEQ/L (136-145); THYROID STIMULATING HORMONE 0.365 uIU/ML (0.358-3.740); TOTAL PROTEIN 5.9 GM/DL (6.4-8.2); TROPONIN I < 0.02 NG/ML (< 0.10)
[2019-06-10] MEDS ORDERED: NORV5TAB PO (12:31)
[2019-06-10] MEDS ORDERED: amLODIPine 5 MG TAB PO ONE (12:45)
[2019-06-10 13:00] VITALS: BP 166/74
[2019-06-10 13:06] VITALS: BP 166/74
--- NOTE | 2019-06-10 20:07 | ECGEPIP ---
[facility] - ED Test Date: 2019-06-10 Pat Name: MIGUEL A ZAMUDIO Department: Room: - Gender: Female [employer] Helper: RILEY : 1955 Requested By: Antonieta Tovar Order Number: [id number] Reading MD: Gilles Galeana Measurements Intervals [place] Rate: 56 P: 15 [place]: 131 QRS: -23 QRSD: 85 T: 13 QT: 401 QTc: 389 Interpretive Statements SINUS BRADYCARDIA BORDERLINE LEFT AXIS DEVIATION MODERATE VOLTAGE CRITERIA FOR LVH, CONSIDER NORMAL VARIANT NONSPECIFIC T WAVE ABNORMALITIES SIMILAR TO 11/29/18 Electronically Signed on 06-10-2019 20:07:11 EDT by Gilles Galeana
[2019-06-24] MEDS ORDERED: MAGN400T3 PO (12:56)
[2019-06-24] MEDS ORDERED: D3 S20002 PO (12:56)
== END 2019-06-10 13:16 | disposition home or self-care (01) ==
LOC: M ED 09:10
DX: I11.9 Hypertensive heart disease without heart failure (principal); R00.1 Bradycardia, unspecified; R94.31 Abnormal electrocardiogram [ECG] [EKG]; I67.89 Other cerebrovascular disease; R93.0 Abnormal findings on diagnostic imaging of skull and head, not elsewhere classified; E11.9 Type 2 diabetes mellitus without complications; Z88.0 Allergy status to penicillin; Z79.01 Long term (current) use of anticoagulants; Z79.891 Long term (current) use of opiate analgesic; Z79.899 Other long term (current) drug therapy

== ENCOUNTER → 2019-06-15 | Outpatient (CLI) | payer OTHER ==
[~2019-06-15] MED LIST changes: +D3 S20002 PO; +MAGN400T PO; +NORV5TAB PO
[2019-06-15 09:07] LABS: CALCIUM LEVEL 9.8 MG/DL (8.8-10.2); CREATININE FOR GFR 1.37 MG/DL (0.55-1.30); GLOMERULAR FILTRATION RATE 50.1 (>45); POTASSIUM SERUM 4.1 MEQ/L (3.5-5.1)
--- NOTE | 2019-06-15 12:08 | REP ---
Chest x-ray: Two views. History: Cervical spinal stenosis. Comparison study: June 10, 2019. Findings: There is moderate cardiac enlargement. Cardiothoracic ratio measures 62.3%. The thoracic aorta is somewhat tortuous. Pulmonary vasculature is not increased. The pleural angles are sharp. Lungs are symmetrically aerated and clear. There are degenerative changes in the thoracic spine. Impression: Moderate cardiomegaly. Otherwise no acute disease. Heart size is felt to be unchanged from June 10, 2019 portable chest x-ray. Electronically Signed by Woody Buchanan MD 06/15/2019 01:00 P
--- NOTE | 2019-06-16 00:46 | ECGEPIP ---
[facility] Test Date: 2019-06-15 Pat Name: MIGUEL A ZAMUDIO Department: Room: - Gender: Female [facility] Sales: SHANTI : 1955 Requested By: Dontae Hinojosa Order Number: [id number] Reading MD: David Singh Measurements Intervals [place] Rate: 64 P: 9 TX: 128 QRS: -25 QRSD: 92 T: 24 QT: 375 QTc: 387 Interpretive Statements SINUS RHYTHM BORDERLINE LEFT AXIS DEVIATION VOLTAGE CRITERIA FOR LVH MOST RECENT TRACING ON 06/10/2019 AT 10:12 A.M., HEART RATE IS NOW FASTER OTHERWISE NO SIGNIFICANT CHANGES Electronically Signed on 06-16-2019 0:46:12 EDT by David Singh
== END ==
LOC: M LAB 08:08
PROVIDERS: ATTEND Orthopaedic Surgery
DX: M50.00 Cervical disc disorder with myelopathy, unspecified cervical region (principal)

== ENCOUNTER 2019-06-30 06:06 | Inpatient (IN) | payer OTHER ==
--- NOTE | 2019-06-23 10:29 | HPE ---
DATE OF ADMISSION: 06/30/2019 ATTENDING PHYSICIAN: Dr. Chu CHIEF COMPLAINT: Neck pain and balance difficulties, numbness and weakness in the upper extremities. HISTORY: This is a 63-year-old female patient, immigrant from [place] comes in today for her history and physical (H and P) for upcoming surgery on 06/30/2019. It should be noted she speaks only Maltese, her daughter translates for. She continues to struggle with her weakness and numbness in her upper extremity. She continues have her balance troubles and she has pain in her neck. She has troubles with normal day-to-day activities and activities of daily living. She has elected for surgery for her continued symptoms. She has consented for an anterior cervical decompression and fusion by Dr. Chu at C4-5, C5-6, possibly C3-4 with the use of donor bone and [place] plate. Medical optimization Dr. Sales (is not present for review today). MRI of her cervical spine is notable for spinal stenosis and myelomalacia at 4-5 as well as cord deformity at 5-6 and some stenosis also noted at 3-4 with minimal listhesis of 2 mm at 3-4. CURRENT MEDICATIONS (include): - acetaminophen 650 mg 1-2 tablets as needed for pain - gabapentin 100 mg three times a day - spironolactone 25 mg half a tablet in evening - magnesium oxide 400 mg 1 tablet as needed - atorvastatin 80 mg 1 tablet once a day - potassium chloride 10 mEq 1 tablet once per day - chlorthalidone 25 mg 1 tablet once per day - lisinopril 20 mg 1 tablet once per day - metformin 500 mg 1 tablet once per day - hydrochlorothiazide 12.5 mg 1 tablet once per day - She also uses vitamin D3 as well. ALLERGIES: To PENICILLINS. PAST SURGICAL HISTORY: Bilateral cataract surgery. Right total knee arthroplasty. MEDICAL CONDITIONS (include): High blood pressure. Sleep apnea. Non-insulin dependent diabetes. Thyroid disease. FAMILY HISTORY: Noncontributory. SOCIAL HISTORY: She does not smoke. She does not use alcohol. REVIEW OF SYSTEMS: Denies fever or chills. Denies chest pain, shortness breath or cough but has difficulty breathing. Denies abdominal pain. Denies nausea or vomiting. Notes persistent neck pain, weakness in the upper extremities. Continues have difficulties with balance. PHYSICAL EXAMINATION: Today reveals an elderly female patient. She ambulates with a rolling walker. She walks with a slightly hunch forward position. Bailey's is positive on examination and there is inverted brachial radialis bilaterally. Biceps reflex is absent. Triceps are 2 at both elbows. Spurling's is negative. Exam of the neck reveals skin to be intact. No erythema, edema or ecchymosis. No adenopathy noted. Neck is supple. Lungs are clear to auscultation without rales or wheeze. Heart: Regular rate and rhythm. Abdomen: Bowel sounds are present. Vital signs: Blood pressure 120/70, pulse 79, respirations 17, temperature 98.4. Height 4 feet 10 inches. Weight 169 pounds. LABORATORY DATA: Hemoglobin 11.4. Glucose 87. BUN 29. Creatinine 1.37. Sodium 142. Potassium 4.1. IMPRESSION: Cervical spinal stenosis, cervical spondylolisthesis symptomatic as well as myelopathy of the cervical region. PLAN: She has consented by Dr. Chu for an anterior cervical decompression and fusion C4-5, C5-6, possibly C3-4 with the use of donor bone and [place] plate. She was counseled to not take any nonsteroidal anti-inflammatory drugs (NSAIDs) 5 days prior to surgery. She was also counseled to bring her sleep apnea machine, continuous positive airway pressure (CPAP) with her to the hospital. She will also bring her cervical collar she was fitted for today to the surgery day.
[~2019-06-30] VITALS: Ht 147.3 cm; Wt 72.9 kg
[~2019-06-30 06:06] MED LIST changes: +LIDOCAINE 1% MDV 20ML VIAL SQ PRN; -MAGN400T PO; +MAGN400T3 PO; +methylPREDNISolone 250 MG in D5W 100 ML IV ONE
[2019-06-30] MEDS ORDERED: VANCOMYCIN 1000 MG/20 ML VIAL (J3370) As Ordered ONE (06:26)
[2019-06-30] MEDS ORDERED: PROPOFOL 200 MG/20 ML VIAL As Ordered ONE (06:51)
[2019-06-30] MEDS ORDERED: ROCURONIUM BROMIDE 50 MG/5 ML VIAL As Ordered ONE ×3 (06:51→11:00)
[2019-06-30] MEDS ORDERED: dexameTHASONE 4 MG/ML 1ML VIAL (J1100) As Ordered ONE ×2 (06:52→10:28)
[2019-06-30] MEDS ORDERED: SUGAMMADEX SODIUM 500 MG/5 ML VIAL (BRIDION) As Ordered ONE (06:52)
[2019-06-30] MEDS ORDERED: ONDANSETRON 4MG/2ML VIAL (J2405) As Ordered ONE ×3 (06:52→10:28)
[2019-06-30] MEDS ORDERED: fentaNYL 250 MCG/5 ML INJECTION (J3010) As Ordered ONE (06:53)
[2019-06-30] MEDS ORDERED: KETAMINE HCL 200 MG/20 ML VIAL As Ordered ONE (06:53)
[2019-06-30] MEDS ORDERED: PROPOFOL 500 MG/50 ML VIAL As Ordered ONE (06:53)
[2019-06-30] MEDS ORDERED: LIDOCAINE 2% INJ 100 MG/5 ML SDV (FOR ANES.) As Ordered ONE (06:54)
[2019-06-30] MEDS ORDERED: MIDAZOLAM INJ 2 MG/2 ML VIAL (J2250) As Ordered ONE ×2 (06:54→10:29)
[2019-06-30] MEDS ORDERED: LIDOCAINE W/EPINEPHRINE 1% 20ML VIAL As Ordered ONE (06:56)
[2019-06-30] MEDS ORDERED: THROMBIN SOLN 20,000 UNITS KIT As Ordered ONE (06:56)
[2019-06-30] MEDS ORDERED: BACITRACIN PWD 50,000 UNITS VIAL As Ordered ONE (06:57)
[2019-06-30] MEDS ORDERED: VANCOMYCIN HCL 1,000 MG, VIAL MATE ADAPTER 1 EACH in D5W 250 ML IV ONE ×2 (07:00→18:00)
[2019-06-30] MEDS ORDERED: LR 1,000 ML IV ONE (07:00)
[2019-06-30] MEDS ORDERED: PERCOCET 5MG/325MG TAB PO ONE (07:00)
[2019-06-30] MEDS ORDERED: methylPREDNISolone 500 MG VIAL (J2930) As Ordered ONE (07:01)
[2019-06-30] MEDS ORDERED: fentaNYL 100 MCG/2 ML INJECTION (J3010) As Ordered ONE (10:28)
[2019-06-30] MEDS ORDERED: GLYCOPYRROLATE INJ 0.2 MG/ML 2 ML VIAL As Ordered ONE (10:59)
--- NOTE | 2019-06-30 13:19 | REP ---
Partial cervical spine series: Two views. History: Anterior cervical discectomy and fusion. Findings: Two cross-table lateral intraprocedural spot views of the cervical spine are presented time stamped at 10:25 a.m. and 12:43 p.m. The 10:25 a.m. film demonstrates an intraoperative probe at the C6-7 disc level. An orotracheal tube is seen. The portable exam time stamped the 12:43 p.m. demonstrates ventral discectomy and fusion plating across the C4 through C6 intervertebral disc levels. Electronically Signed by Woody Buchanan MD 06/30/2019 06:24 P
[2019-06-30] MEDS ORDERED: MORPHINE 10 MG/ML 1ML VIAL (J2270) IV PRN (14:00)
[2019-06-30] MEDS ORDERED: GLUCAGON FOR INJ 1 MG VIAL (J1610) SC PRN (14:00)
[2019-06-30] MEDS ORDERED: ONDANSETRON 4MG/2ML VIAL (J2405) IV PRN ×2 (14:00→15:00)
[2019-06-30] MEDS ORDERED: LR 1,000 ML IV SCH ×2 (14:00→15:00)
[2019-06-30] MEDS ORDERED: GLUCOSE 4 GM CHEW TABLET PO PRN (14:00)
[2019-06-30] MEDS ORDERED: DEXTROSE 50% 50 ML SYRINGE IV PRN (14:00)
[2019-06-30] MEDS ORDERED: fentaNYL 100 MCG/2 ML INJECTION (J3010) IV PRN (14:00)
[2019-06-30 14:27] LABS: HEMATOCRIT 32.6 % (36.0-47.0); HEMOGLOBIN 10.5 g/dl (12.0-15.5); MEAN CORPUSCULAR HEMOGLOBIN 30.3 pg (27.0-33.0); MEAN CORPUSCULAR HGB CONC 32.2 g/dl (32.0-36.5); MEAN CORPUSCULAR VOLUME 93.9 fl (80.0-96.0); PLATELET COUNT, AUTOMATED 228 10^3/uL (150-450); RED BLOOD COUNT 3.47 10^6/uL (4.00-5.40); WHITE BLOOD COUNT 15.4 10^3/uL (4.0-10.0)
[2019-06-30 14:36] VITALS: BP 167/83
[2019-06-30 14:56] LABS: ALBUMIN 3.2 GM/DL (3.2-5.2); ALT/SGPT 28 U/L (12-78); BILIRUBIN,TOTAL 0.7 MG/DL (0.2-1.0); BLOOD UREA NITROGEN 22 MG/DL (7-18); CALCIUM LEVEL 9.2 MG/DL (8.8-10.2); CARBON DIOXIDE LEVEL 28 MEQ/L (21-32); CHLORIDE LEVEL 103 MEQ/L (98-107); CREATININE FOR GFR 1.16 MG/DL (0.55-1.30); GLOMERULAR FILTRATION RATE > 60.0 (>45); GLUCOSE, FASTING 194 MG/DL (70-100); MAGNESIUM LEVEL 1.4 MG/DL (1.8-2.4); POTASSIUM SERUM 3.6 MEQ/L (3.5-5.1); SODIUM LEVEL 138 MEQ/L (136-145); THYROID STIMULATING HORMONE 0.282 uIU/ML (0.358-3.740); TOTAL PROTEIN 5.9 GM/DL (6.4-8.2)
[2019-06-30] MEDS ORDERED: ACETAMINOPHEN TAB 650MG DOSE (2X325MG) PO PRN (15:00)
[2019-06-30] MEDS ORDERED: LABETALOL HCL 100 MG/20 ML VIAL IV PRN (15:00)
[2019-06-30] MEDS ORDERED: MORPHINE 4 MG/ML 1ML VIAL/SYRINGE (J2270) IV PRN (15:00)
[2019-06-30 15:04] LABS: HEMOGLOBIN A1c 7.7 %
[2019-06-30] MEDS: MAGNESIUM OXIDE 400 MG TAB (MAG-OX) PO SCH (15:19)
[2019-06-30] MEDS: SPIRONOLACTONE 12.5MG PER 1/2 TABLET PO SCH (15:19)
[2019-06-30] MEDS: HumaLOG INSULIN (NovoLOG) PER UNIT SC SCH ×3 (15:20→20:34)
[2019-06-30] MEDS: amLODIPine 10 MG TAB PO SCH (15:20)
[2019-06-30 15:24] VITALS: BP 164/84
[2019-06-30 16:24] VITALS: BP 158/85
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
[2019-06-30 17:39] VITALS: BP 158/86
[2019-06-30] MEDS: PERCOCET 5MG/325MG TAB PO PRN (18:07)
[2019-06-30 18:30] VITALS: BP 174/97
[2019-06-30] MEDS: LISINOPRIL 20 MG TAB PO SCH (20:35)
[2019-06-30] MEDS: ATORVASTATIN 20 MG TAB PO SCH (20:35)
[2019-06-30 21:12] VITALS: BP 155/78
[2019-07-01 02:25] VITALS: BP 154/79
[2019-07-01] MEDS: PERCOCET 5MG/325MG TAB PO PRN ×3 (04:11→16:51)
[2019-07-01 06:51] VITALS: BP 173/78
[2019-07-01] MEDS ORDERED: SODIUM CHLORIDE NASAL 0.65% SPRAY BTL (OCEAN) PRN (07:45)
[2019-07-01] MEDS ORDERED: PERC5TAB12 PO (08:01)
[2019-07-01] MEDS: VITAMIN D 1,000 INTERNATIONAL UNITS TABLET PO SCH (09:22)
[2019-07-01] MEDS: MAGNESIUM OXIDE 400 MG TAB (MAG-OX) PO SCH (09:22)
[2019-07-01] MEDS: LISINOPRIL 20 MG TAB PO SCH ×2 (09:22→21:30)
[2019-07-01] MEDS: SPIRONOLACTONE 12.5MG PER 1/2 TABLET PO SCH (09:22)
[2019-07-01] MEDS: amLODIPine 10 MG TAB PO SCH (09:22)
[2019-07-01] MEDS: SODIUM CHLORIDE NASAL 0.65% SPRAY BTL (OCEAN) PRN (09:23)
[2019-07-01] MEDS: HumaLOG INSULIN (NovoLOG) PER UNIT SC SCH ×4 (09:24→21:00)
[2019-07-01 10:45] VITALS: BP 157/79
[2019-07-01 13:37] VITALS: BP 156/80
--- NOTE | 2019-07-01 18:13 | RO ---
DATE OF PROCEDURE: 06/30/2019 PREOPERATIVE DIAGNOSIS: Cervical spinal stenosis with myelopathy most significant at C4-5 and C5-6. POSTOPERATIVE DIAGNOSIS: Cervical spinal stenosis with myelopathy most significant at C4-5 and C5-6. OPERATIVE PROCEDURE: 1. Partial corpectomy of C4 level including debridement of approximately 50% of the C4 vertebral corpus as well as the C5 uncinate processes, osteophyte formation distraction of the collapsed segments, removal of the posterior longitudinal ligament and decompression of thecal sac. 2. Additional level partial corpectomy at C5 including removal of approximately 50% of the C5 vertebral body as well as the C6 uncinate processes to facilitate removal of the posterior longitudinal ligament and osteophytes. 3. Cervical arthrodesis at C4-5 and C5-6 including endplate preparation. Anterior instrumentation at C4, C5 and C6, application of SKYLINE plate. 3. Application of structural allograft for spine surgery, VG2 at C4-5 (size 5 x 7) and at C5-6 (size 6 x 8). SURGEON: Dontae Chu MD SUPERVISOR BOILERMAKING SHOP: Donal Calero PA-C ANESTHESIA: General endotracheal, Dr. Garcia. ESTIMATED BLOOD LOSS: Less than 60 ml, replaced with crystalloid. COMPLICATIONS: None. INDICATIONS: 63-year-old female with severe cervical spinal stenosis and spondylosis at multiple levels who has had symptoms going on for more than a year consistent with cervical myelopathy and now elects for operative intervention. Consent reviewed in detail with the patient as well as the patient's daughter who functions as an gaming surveillance observer as the patient is fluent in Cam[place]onian but not fluid in [place]. The consent involved a discussion of the pathology involved, the procedures proposed, alternatives including doing nothing, we also had the discussion of the possibility to extend the fusion up to the 3-4 level if that level was accessible (there is question as whether this would be accessible based on the patient's body habitus which is a short thick neck). We talked about risks including but not limited to risk of pain, failure, infection, bleeding, blood loss, paralysis, hoarseness, swallowing trouble, , need for more surgery and other problems and they did agree to proceed with surgery. OPERATIVE COURSE: Identified in the holding area, site and side verified; brought to the operating room. Once anesthesia was administered she was then positioned in usual fashion. Next anesthesia had significant difficulty obtaining adequate intravenous line. We could only obtain a 22 at one of her wrists that was reliable. It was therefore considered and decided to proceed with a femoral line after discussion with Dr. Garcia of anesthesia who placed the femoral line so that we would have a higher capacity access in case of the event of a catastrophic bleeding event or other problem such as a cardiac event in this diabetic woman that required infusion of fluids rapidly. Once this was accomplished we finished positioning the patient for position of the cervical spine. Cervical traction about 6 pounds was placed through a halter. We had to move the arms to the side, tape the shoulders down and make quite a few adjustments because of the patient's significant body habitus, which was relatively large or corpulent around the neck area and upper body area. Next, once we were comfortable with the patient's positioning she was then sterilely prepped and draped in the usual fashion. The incision was outlined with marking pen, infiltrated with 1% lidocaine with epinephrine, made with a #10 blade knife developed down through skin and subcuticular tissues to the platysma. Mr. Myers was standing on the patient's left, I on the patient's right side. I did utilized a loupe magnification as well as a headlamp. Next the platysma was elevated and divided perpendicular to its fibers. We continued dissection, we exposed the omohyoid. The omohyoid was divided. We identified the carotid sheath. I stayed medial to the carotid sheath. The dissection continued to the anterior vertebral column. I identified an anterior osteophyte, placed a bayonet #20-gauge spinal needle at the osteophyte and then we obtained a cross-table lateral x-ray to verify our level. The cross-table lateral x-ray suggested that the pin was at the C6-7 level, so therefore we marked at the C6 level above the pin with the Bovie cautery and then I continued the dissection superiorly exposing C4-5 and C5-6. I explored the concept of extending up to 3-4 as we had discussed as there was some spondylosis at 3-4 and mild spinal stenosis there, however, the patient's body habitus was such that I considered that dissection not advisable based on her degree of pathology and we exposed the consented levels 4-5 and 5-6. Next, I placed distraction pins across 5-6, elevated the longus coli musculature at its medial border, placed the shadow line retractor, distracted across C5-6. We removed the C5-6 annulus using [place] for the disk osteophyte as well as an #11 blade followed by pituitaries and curette. The 5-6 disk space was quite completely collapsed and therefore I did use an oval bur to implement the partial corpectomy of C5 to get to the posterior longitudinal ligament. A significant portion of the C5 corpus and in fact the C6 corpus had to be removed, although some of the endplate of 6 was preserved and protected. I did remove the uncinate processes as well at C6 but most of that was coming off the C5 to allow the exposure. PLL was exposed, elevated. PLL was somewhat scarred down, but I was able to remove PLL decompressing the thecal sac. Rasps were utilized up to a size 6 x 8 rasp at C5-6 and I placed a 6 x 8 sound. Next, VG2 graft was obtained and I placed a 6 x 8 VG2 graft after irrigation. Next, once this was accomplished, removed the C6 distraction pin, plugged with wax, removed additional osteophyte using oval bur. I placed distraction pin at C4 and distracted across C4-5. Again there was quite significant collapse of the disk space of 4-5, perhaps not quite as severe as 5-6, but did require additional removal of C4 vertebral body corpus in its inferior aspect and contouring of the superior C5 and removal of uncinate processes exposing the posterior longitudinal ligament. I elevated the posterior longitudinal ligament using 4-0 and 3-0 curettes as I had at C5-6. I also removed some extruded disk material here which was posterior to that ligament, clearly producing some compression. Next, once this was accomplished I utilized rasps and a sound, size 5 x 7 fit appropriately at C4-5. Next, once this was accomplished I placed the VG2 5 x 7 graft. We did press some bur milling bone fragments into the graft as autograft. Next, once the graft was implanted and we had measured the vertebral body distant, the greater 15 mm, we removed the distraction pins, plugged with wax, further contoured the anterior vertebral bodies. I selected a size 30 mm SKYLINE plate which seemed to fit appropriately. This plate was drilled and then secured using 14 mm screws at C4, C5 and 15 mm screws at C6. I placed on the patient's left side, the purchase was somewhat osteoporotic with a regular screw and I did place a rescue screw which fit securely. The plate was locked into place using the locking devices. I irrigated. We inspected for bleeding. There is no active bleeding. We had utilized some thrombin Gelfoam that was removed. Next, our final cross-table lateral x-ray was taken and reflects partial corpectomies at C5-6 and C4-5 with good improvement and cervical alignment overall. Next, once this was accomplished, platysma and deep dermis were reapproximated with interrupted stitch. Dermabond was applied on skin. Cervical collar was installed. The patient was able to be extubated, moved to recovery room in good condition. We will coordinate with our anesthesia team to remove the central line in the morning, postoperative day #1. In the recovery room, the patient was appreciated to be conscious and able to converse. The patient's daughter was able to come into the recovery room as well so that the patient could most comfortably talk as she speaks in an -Cam[place]onian dialect. For further details please refer to medical record.
[2019-07-01 20:10] VITALS: BP 162/83
[2019-07-01] MEDS: ATORVASTATIN 20 MG TAB PO SCH (21:30)
[2019-07-02] MEDS: PERCOCET 5MG/325MG TAB PO PRN ×2 (01:26→08:56)
[2019-07-02] MEDS: SODIUM CHLORIDE NASAL 0.65% SPRAY BTL (OCEAN) PRN (01:26)
[2019-07-02 06:36] VITALS: BP 167/96
--- NOTE | 2019-07-02 08:35 | IPN ---
DATE OF SERVICE: 07/02/2019 CHIEF COMPLAINT: Postoperative day #1 cervical spine surgery. HISTORY OF PRESENT ILLNESS: This woman underwent extensive cervical spine surgery for cervical spinal stenosis and myelopathy most significant at C4-5 and C5-6. PHYSICAL EXAMINATION: Well-appearing 63-year-old female. She is up to the washroom. She is brushing her teeth. She does not speak Amharic and there is no watch hairspring assembler and the daughter is not here. Wound looks clean and dry. No swelling. No problems with swallowing or breathing. She is moving her upper extremities appropriatelt, standing up and walking around and ambulating independently. LABORATORY DATA: No laboratory results have been ordered. ASSESSMENT/PLAN: This 63-year-old female will be mobilized according to Dr. Chu with the physical therapist. She will follow up in the office with him when she is comfortable to be discharged home.
[2019-07-02] MEDS: MAGNESIUM OXIDE 400 MG TAB (MAG-OX) PO SCH (08:55)
[2019-07-02] MEDS: VITAMIN D 1,000 INTERNATIONAL UNITS TABLET PO SCH (08:55)
[2019-07-02] MEDS: HumaLOG INSULIN (NovoLOG) PER UNIT SC SCH ×2 (08:56→12:52)
[2019-07-02 08:57] VITALS: BP 167/94
[2019-07-02] MEDS: amLODIPine 10 MG TAB PO SCH (08:57)
[2019-07-02] MEDS: LISINOPRIL 20 MG TAB PO SCH (08:57)
[2019-07-02] MEDS: SPIRONOLACTONE 12.5MG PER 1/2 TABLET PO SCH (08:57)
--- NOTE | 2019-07-04 18:09 | DSES ---
DATE OF ADMISSION: 06/30/2019 DATE OF DISCHARGE: 07/02/2019 ADMISSION DIAGNOSIS: Cervical spinal stenosis with myelopathy. OTHER DIAGNOSES: 1. Hypertension. 2. Obstructive sleep apnea. 3. Type 2 diabetes. 4. Thyroid disease. DISCHARGE DIAGNOSIS: Cervical spinal stenosis with myelopathy status post anterior cervical decompression and fusion. HISTORY: The patient is a 63-year-old female with continued weakness and numbness in the upper extremities. She continued to have balance problems in addition to neck pain. She had troubles with normal day-to-day activities, so she elected for an anterior cervical decompression and fusion procedure by Dr. Chu at C4-5 and C5-6, possibly C3-4 with the use of donor bone and [place] plate. OPERATION PERFORMED: 1. Partial corpectomy of C4 level, including debridement of approximately 50% of the C4 vertebral corpus as well as the C5 uncinate process, osteophyte formation distraction of the collapsed segments, removal of posterior longitudinal ligament, and decompression of the thecal sac. 2. Additional level partial corpectomy at C5, including removal of approximately 50% of the C5 vertebral body as well as the C6 uncinate process to facilitate removal of the posterior longitudinal ligament and osteophytes. 3. Cervical arthrodesis at C4-5 and C5-6, including endplate preparation, anterior instrumentation at C4, C5, and C6, application of [place] plate, and application of structural allograft for spine surgery, VG2 at C4-5 and at C5-6. HOSPITAL COURSE: The patient underwent an anterior cervical decompression and fusion procedure under general anesthesia. Surgery was uneventful, and her hospital course was without complication. The patient was discharged on oral pain medications and will resume her preoperative medications and diet. She will use her cervical collar and wear her thromboembolic deterrent stockings as directed to prevent deep venous thrombosis. The patient will followup in our office in approximately 7-10 days for re-evaluation. She is encouraged to report to our office sooner if there is any increase in pain, redness, drainage, radiating pain, numbness, tingling, or weakness worsening in the extremities, fever greater than 101 degrees, or any other concerns. Please see medical record for additional details.
== END 2019-07-02 13:40 | disposition home or self-care (01) | DRG 321 ==
LOC: M OR 06:06 → M MS5PR 14:26
PROVIDERS: ADMIT Orthopaedic Surgery; ATTEND Orthopaedic Surgery
PROC: 0RG20A0 Fusion of 2 or more Cervical Vertebral Joints with Interbody Fusion Device, Anterior Approach, Anterior Column, Open Approach (ICD-10-PCS; 2019-06-30)
PROC: 0RH104Z Insertion of Internal Fixation Device into Cervical Vertebral Joint, Open Approach (ICD-10-PCS; principal; 2019-06-30 07:30)
DX: M47.12 Other spondylosis with myelopathy, cervical region (principal); I11.0 Hypertensive heart disease with heart failure; E11.51 Type 2 diabetes mellitus with diabetic peripheral angiopathy without gangrene; I50.32 Chronic diastolic (congestive) heart failure; I27.20 Pulmonary hypertension, unspecified; Z79.899 Other long term (current) drug therapy; Z88.0 Allergy status to penicillin; G47.33 Obstructive sleep apnea (adult) (pediatric); Z96.651 Presence of right artificial knee joint; Z98.41 Cataract extraction status, right eye; Z98.42 Cataract extraction status, left eye; E78.5 Hyperlipidemia, unspecified; Z96.652 Presence of left artificial knee joint

== ENCOUNTER → 2019-10-20 | Outpatient (CLI) | payer MEDICAID, OTHER ==
[~2019-10-20] MED LIST changes: -LIDOCAINE 1% MDV 20ML VIAL SQ PRN; -methylPREDNISolone 250 MG in D5W 100 ML IV ONE
[2019-10-20 10:17] LABS: HEMOGLOBIN A1c 6.4 %
[2019-10-20 10:40] LABS: CALCIUM LEVEL 11.5 MG/DL (8.8-10.2); CHOLESTEROL RISK RATIO 2.25 (<5); CREATININE FOR GFR 1.18 MG/DL (0.55-1.30); GLOMERULAR FILTRATION RATE 59.3 (>45); POTASSIUM SERUM 4.3 MEQ/L (3.5-5.1)
== END ==
LOC: M LAB 08:49
PROVIDERS: ATTEND Obstetrics & Gynecology
DX: E11.42 Type 2 diabetes mellitus with diabetic polyneuropathy (principal)

== ENCOUNTER → 2020-02-01 | Outpatient (REF) | payer OTHER, MEDICAID ==
[~2020-02-01] MED LIST changes: +SYST1SOL4 OU; +VITAD1000T PO
[2020-02-01 14:38] LABS: ALBUMIN 3.4 GM/DL (3.2-5.2); BILIRUBIN,TOTAL 0.4 MG/DL (0.2-1.0); CALCIUM LEVEL 11.1 MG/DL (8.8-10.2); CHOLESTEROL RISK RATIO 2.482 (<5); CREATININE FOR GFR 1.52 MG/DL (0.55-1.30); GLOMERULAR FILTRATION RATE 44.3 (>45); POTASSIUM SERUM 5.1 MEQ/L (3.5-5.1); TOTAL PROTEIN 6.5 GM/DL (6.4-8.2)
[2020-02-01 14:46] LABS: HEMOGLOBIN A1c 6.9 %
== END ==
LOC: M SFHCPLAZ 11:17
PROVIDERS: ATTEND Family Medicine
DX: E78.5 Hyperlipidemia, unspecified (principal); I10 Essential (primary) hypertension; E11.42 Type 2 diabetes mellitus with diabetic polyneuropathy

== ENCOUNTER → 2020-02-03 | Outpatient (REF) | payer OTHER, MEDICAID ==
[2020-02-03 14:49] LABS: HEMOGLOBIN A1c 7.1 %
== END ==
LOC: M SFHCPLAZ 08:39
PROVIDERS: ATTEND Family Medicine
DX: E11.42 Type 2 diabetes mellitus with diabetic polyneuropathy (principal)

== ENCOUNTER → 2020-02-06 | Outpatient (CLI) | payer OTHER, MEDICAID | LOC: M LABSMTC 12:29 | PROVIDERS: ATTEND Anesthesiology | DX: Z01.812 Encounter for preprocedural laboratory examination (principal); Z11.59 Encounter for screening for other viral diseases ==

== ENCOUNTER → 2020-02-06 | Outpatient (CLI) | payer OTHER ==
[2020-02-06 14:03] LABS: CALCIUM LEVEL 10.4 MG/DL (8.8-10.2); CREATININE FOR GFR 1.45 MG/DL (0.55-1.30); GLOMERULAR FILTRATION RATE 46.7 (>45); POTASSIUM SERUM 4.1 MEQ/L (3.5-5.1)
== END ==
LOC: M LAB 13:07
PROVIDERS: ATTEND Obstetrics & Gynecology
DX: I10 Essential (primary) hypertension (principal)

== ENCOUNTER → 2020-02-08 | Outpatient (CLI) | payer OTHER ==
--- NOTE | 2020-02-08 09:40 | REP ---
URINARY TRACT SONOGRAPHY: HISTORY: Acute renal failure. TECHNIQUE: The patient was unable to get out of the wheelchair and thus the exam was performed upright in the wheelchair to the best of our ability. Renal cortical echogenicity pattern is normal and contours are smooth. Right renal dimensions are 11.0 x 5.8 x 6.0 cm. Left kidney measures 10.0 x 4.6 x 5.8 cm. No hydronephrosis is seen. No mass or cyst is observed. Resistive indices by Doppler are measured at 0.68 on the right and 0.69 on the left. These values are felt to be normal. The bladder could not be imaged. IMPRESSION: No morphologic abnormality noted. Exam somewhat limited.
== END ==
LOC: M WHC 06:55
PROVIDERS: ATTEND Obstetrics & Gynecology
DX: N17.9 Acute kidney failure, unspecified (principal)

== ENCOUNTER → 2020-02-14 | Outpatient (REF) | payer OTHER ==
[~2020-02-14] MED LIST changes: +AMLO5TAB6 PO; +CARV3.12 PO; +VITA200010 PO
[2020-02-15 18:17] LABS: PERCENT SATURATION 23.7 % (13.2-45.0)
== END ==
LOC: M LAB REF 17:02
PROVIDERS: ATTEND Internal Medicine Nephrology
DX: D50.9 Iron deficiency anemia, unspecified (principal)

== ENCOUNTER → 2020-02-17 | Outpatient (CLI) | payer OTHER | LOC: M PLALAB 13:40 | PROVIDERS: ATTEND Optometrist | DX: H53.2 Diplopia (principal) ==

== ENCOUNTER → 2020-05-11 | Outpatient (CLI) | payer OTHER ==
[~2020-05-11] MED LIST changes: +AMLO1TAB24 PO; -AMLO5TAB6 PO; +D31000TA2 PO; +FURO40TA2 PO; +LIDO5TD TD; +MAG400TA PO; +META1POW PO; +RISATAB3 PO; -TAB-TAB PO; +TAB-TAB2 PO; -VITAD1000T PO
[2020-05-11 14:50] LABS: BASO % 0.5 % (0.0-1.0); EOS # 0.3 10^3/uL (0.0-0.5); EOS % 4.1 % (0.0-3.0); HEMATOCRIT 32.4 % (36.0-47.0); HEMOGLOBIN 10.3 g/dl (12.0-15.5); LYMPH # 2.9 10^3/uL (1.5-5.0); LYMPH % 44.6 % (24.0-44.0); MEAN CORPUSCULAR HEMOGLOBIN 28.8 pg (27.0-33.0); MEAN CORPUSCULAR HGB CONC 31.8 g/dl (32.0-36.5); MEAN CORPUSCULAR VOLUME 90.5 fl (80.0-96.0); MONO # 0.5 10^3/uL (0.0-0.8); MONO % 7.3 % (0.0-5.0); NEUTROPHILS # 2.8 10^3/uL (1.5-8.5); NEUTROPHILS % 43.3 % (36.0-66.0); PLATELET COUNT, AUTOMATED 299 10^3/uL (150-450); RED BLOOD COUNT 3.58 10^6/uL (4.00-5.40); WHITE BLOOD COUNT 6.6 10^3/uL (4.0-10.0)
[2020-05-11 14:53] LABS: ALBUMIN 3.3 GM/DL (3.2-5.2); ALT/SGPT 8 U/L (12-78); BILIRUBIN,TOTAL 0.5 MG/DL (0.2-1.0); BLOOD UREA NITROGEN 18 MG/DL (7-18); CALCIUM LEVEL 12.3 MG/DL (8.8-10.2); CARBON DIOXIDE LEVEL 27 MEQ/L (21-32); CHLORIDE LEVEL 106 MEQ/L (98-107); CREATININE FOR GFR 1.15 MG/DL (0.55-1.30); GLOMERULAR FILTRATION RATE > 60.0 (>45); GLUCOSE, FASTING 73 MG/DL (70-100); POTASSIUM SERUM 3.8 MEQ/L (3.5-5.1); SODIUM LEVEL 140 MEQ/L (136-145); TOTAL PROTEIN 6.4 GM/DL (6.4-8.2)
[2020-05-11 15:53] LABS: TOTAL 25(OH) VITAMIN D 62.7 NG/ML (30.0-100.0)
[2020-05-11 16:18] LABS: FOLATE 3.9 NG/ML (>5.4)
== END ==
LOC: M PLALAB 10:25
PROVIDERS: ATTEND Student in an Organized Health Care Education/Training Program
DX: D50.8 Other iron deficiency anemias (principal)

== ENCOUNTER → 2020-05-23 | Outpatient (CLI) | payer OTHER ==
--- NOTE | 2020-06-08 13:48 | REP ---
LEFT FEMUR X-RAY: CLINICAL: Left hip pain. TECHNIQUE: AP and frog lateral views of the left femur. FINDINGS: Age related osteopenia and degenerative changes are noted. No acute fracture or dislocation. Evidence for prior knee replacement. IMPRESSION: Osteopenia and degenerative changes. No acute fracture or dislocation. MTDD
== END ==
LOC: M WUC 16:58
PROVIDERS: ATTEND Nurse Practitioner Family
DX: M85.80 Other specified disorders of bone density and structure, unspecified site (principal); M25.552 Pain in left hip; W01.0XXA Fall on same level from slipping, tripping and stumbling without subsequent striking against object, initial encounter